=== PATIENT | male | born 1945 | race Caucasian/White ===

== ENCOUNTER 2016-08-03 12:28 | Outpatient (CLI) | payer OTHER | END 2016-08-03 12:29 | disposition home or self-care (01) | DX: R74.8 Abnormal levels of other serum enzymes (principal); N28.9 Disorder of kidney and ureter, unspecified; I10 Essential (primary) hypertension; E78.5 Hyperlipidemia, unspecified; E74.39 Other disorders of intestinal carbohydrate absorption; E29.1 Testicular hypofunction ==

== ENCOUNTER 2016-08-20 11:38 | Outpatient (CLI) | payer OTHER | END 2016-08-20 11:39 | disposition home or self-care (01) | DX: R07.89 Other chest pain (principal); I49.3 Ventricular premature depolarization; I10 Essential (primary) hypertension; E78.5 Hyperlipidemia, unspecified | CPT/HCPCS: 78452; 93017; A9500 ==

== ENCOUNTER 2016-08-26 08:27 | Outpatient (CLI) | payer OTHER | END 2016-08-26 08:28 | disposition home or self-care (01) | DX: Z79.899 Other long term (current) drug therapy (principal); I10 Essential (primary) hypertension; E78.2 Mixed hyperlipidemia ==

== ENCOUNTER 2016-09-22 07:48 | Outpatient (CLI) | payer OTHER | END 2016-09-22 07:49 | disposition home or self-care (01) | DX: R07.89 Other chest pain (principal); I10 Essential (primary) hypertension; N28.9 Disorder of kidney and ureter, unspecified ==

== ENCOUNTER 2016-10-19 13:20 | Outpatient (CLI) | payer OTHER | END 2016-10-19 23:59 | disposition home or self-care (01) | DX: L30.9 Dermatitis, unspecified (principal); N28.9 Disorder of kidney and ureter, unspecified; I10 Essential (primary) hypertension ==

== ENCOUNTER 2016-11-15 10:16 | Emergency (ER) | payer OTHER ==
[2016-11-15] MEDS ORDERED: LIDOCAINE 1% 2 ML VIAL ONE ×2 (12:32)
[2016-11-15] MEDS ORDERED: TETANUS/DIPHTHERIA/PERTUSSIS 0.5 ML SYRINGE IM ONE ×2 (12:53→13:00)
--- NOTE | 2016-11-15 12:54 | ED Physician Documentation ---
PD HPI UPPER EXT INJURY - Stated complaint Stated Complaint: LEFT FINGER LAC - Chief complaint Chief Complaint: Laceration - History obtained from History obtained from: Patient, Family - History of Present Illness Location: Left, Finger (middle) Type of injury: Laceration (with a skill saw) Where injury occurred: Home Timing - onset: Today Timing - duration: Hours Timing - details: Abrupt onset, Still present Improved by: Rest, Immobilization Worsened by: Moving, Palpating Associated symptoms: No: Weakness, Numbness, Tingling Contributing factors: No: Anticoagulated Similar symptoms before: Diagnosis (laceration) Recently seen: Not recently seen - Additonal information Additional information: using a skill saw with confidence he struck the tip of his left middle finger lacerating the tip and scoring the nail Review of Systems Constitutional: denies: Fever Nose: denies: Congestion Respiratory: denies: Cough GI: denies: Vomiting Skin: reports: Laceration (s) Musculoskeletal: reports: Extremity pain Neurologic: denies: Focal weakness, Numbness PD PAST MEDICAL HISTORY - Past Medical History Past Medical History: Yes Cardiovascular: Hypertension, High cholesterol Respiratory: Sleep apnea Endocrine/Autoimmune: None GI: GERD, Diverticulitis : None HEENT: Chronic hearing loss Psych: Depression, Anxiety Musculoskeletal: Other Derm: None - Past Surgical History Past Surgical History: Yes General: Appendectomy HEENT: Tonsil/Adenoidectomy - Present Medications Home Medications: Ambulatory Orders Medication Instructions Recorded Confirmed Aspirin [Aspir-Low] 81 mg PO DAILY 01/01/16 11/15/16 Felodipine [Felodipine ER] 10 mg PO DAILY 01/01/16 11/15/16 Omeprazole [PriLOSEC] 20 mg PO DAILY 01/01/16 11/15/16 Testosterone Cypionate 100 mg IM ONCE 01/01/16 11/15/16 [Depo-Testosterone] Blood Pressure Med Starts With C 11/15/16 - Allergies Allergies/Adverse Reactions: Allergies Allergy/AdvReac Type Severity Reaction Status Date / Time No Known Drug Allergies Allergy Verified 01/01/16 14:51 - Social History Does the pt smoke?: No Smoking Status: Never smoker - Immunizations Immunizations are current?: No Immunizations: TDAP >10years/unknown PD ED PE NORMAL - Vitals Vital signs reviewed: Yes (hypertensive ) - General General: No acute distress, Well developed/nourished - HEENT HEENT: Atraumatic, PERRL - Respiratory Respiratory: No respiratory distress - Derm Derm: Normal color, Warm and dry, No rash - Extremities Extremities: No deformity, No edema, Other (There is a 1.5mc laceration with macerated tissue and a score to the nail without laceration of the nailbed. ) - Neuro Neuro: No motor deficit, No sensory deficit - Psych Psych: Normal mood, Normal affect Results - Vitals Vitals: Vital Signs - 24 hr 11/15/16 10:21 Temperature 36 C L Heart Rate 84 Respiratory 18 Rate Blood Pressure 149/84 H O2 Saturation 96 Oxygen O2 Source Room air Procedures - Laceration (location) left middle finger Length in cm: 1.5 Wound type: Linear, Clean Neurovascular status: Sensory intact, Motor intact, Vascular intact Anesthesia: Lidocaine 1% Wound Preparation: Hibiclens, Irrigated copiously NS, Wound explored, To the base Skin layer closure: Nylon, Interrupted, Size #-0 - enter number (5-0), Sutures - enter # (2) Other: Patient tolerated well, No complications, Neurovascular intact, Dressing applied, Tetanus booster given Complexity: Simple PD MEDICAL DECISION MAKING - ED course Complexity details: considered differential, d/w patient ED course: 71 y/o male with a laceration to the tip of the middle finger on the left . Departure - Departure Disposition: 01 Home, Self Care Clinical Impression: Finger laceration Qualifiers: Encounter type: initial encounter Qualified Code(s): S61.219A - Laceration without foreign body of unspecified finger without damage to nail, initial encounter Condition: Stable Instructions: ED Laceration Hand Follow-Up: Bridger Sanches MD [Primary Care Provider] - Comments: sutures out in 7-10 days
[2016-11-15 13:20] VITALS: BP 158/86
== END 2016-11-15 13:19 | disposition home or self-care (01) ==
LOC: ED 10:16
DX: S61.312A Laceration without foreign body of right middle finger with damage to nail, initial encounter (principal); W29.8XXA Contact with other powered hand tools and household machinery, initial encounter; Y92.009 Unspecified place in unspecified non-institutional (private) residence as the place of occurrence of the external cause; I10 Essential (primary) hypertension; Z79.82 Long term (current) use of aspirin
CPT/HCPCS: 12001; 90471; 99283

== ENCOUNTER 2017-02-26 08:53 | Outpatient (CLI) | payer OTHER ==
[2017-02-26 13:51] LABS: EOSINOPHILS # (AUTO) 0.1 10^3/uL (0.0-0.7); EOSINOPHILS % (AUTO) 2.5 %; HGB - HEMOGLOBIN 17.4 g/dL (14.0-18.0); LYMPHOCYTES # (AUTO) 0.9 10^3/uL (1.5-3.5); LYMPHOCYTES % (AUTO) 18.4 %; MEAN CORPUSCULAR HEMOGLOBIN 32.1 pg (27.0-31.0); MEAN CORPUSCULAR HGB CONC 33.6 g/dL (32.0-36.0); MEAN CORPUSCULAR VOLUME 95.6 fL (80.0-94.0); MEAN PLATELET VOLUME 7.8 fL (7.4-11.4); MONOCYTES # (AUTO) 0.5 10^3/uL (0.0-1.0); MONOCYTES % (AUTO) 11.3 %; NEUTROPHILS # (AUTO) 3.1 10^3/uL (1.5-6.6); NEUTROPHILS % (AUTO) 66.8 %; NUCLEATED RED BLOOD CELLS AUTO 0.1 /100WBC; RED BLOOD COUNT 5.44 10^6/uL (4.70-6.10); RED CELL DISTRIBUTION WIDTH 14.2 % (12.0-15.0); UNCORRECTED WHITE BLOOD COUNT 4.6 x10^3/uL; WHITE BLOOD COUNT 4.6 x10^3/uL (4.8-10.8)
[2017-02-26 14:10] LABS: ALBUMIN/GLOBULIN RATIO 1.1 (1.0-2.2); BILIRUBIN,TOTAL 0.8 mg/dL (0.2-1.0); CALCIUM 9.4 mg/dL (8.5-10.3); CREATININE 1.7 mg/dL (0.6-1.2)
[2017-02-26 14:30] LABS: HEMOGLOBIN A1C 0.71 g/dL
== END 2017-02-26 08:54 | disposition home or self-care (01) ==
LOC: LAB.WCP 08:53
PROVIDERS: ATTEND Family Medicine
DX: D75.1 Secondary polycythemia (principal); F52.21 Male erectile disorder; R74.8 Abnormal levels of other serum enzymes; N28.9 Disorder of kidney and ureter, unspecified; E74.39 Other disorders of intestinal carbohydrate absorption
CPT/HCPCS: 36415; 80053; 83036; 84403; 85025

== ENCOUNTER 2017-05-27 12:45 | Outpatient (CLI) | payer OTHER ==
[2017-05-27 12:36] LABS: BASOPHILS % (AUTO) 0.5 %; EOSINOPHILS # (AUTO) 0.2 10^3/uL (0.0-0.7); EOSINOPHILS % (AUTO) 3.7 %; HCT - HEMATOCRIT 52.5 % (42.0-52.0); HGB - HEMOGLOBIN 17.9 g/dL (14.0-18.0); LYMPHOCYTES # (AUTO) 1.1 10^3/uL (1.5-3.5); LYMPHOCYTES % (AUTO) 15.7 %; MEAN CORPUSCULAR HGB CONC 34.2 g/dL (32.0-36.0); MEAN CORPUSCULAR VOLUME 96.5 fL (80.0-94.0); MEAN PLATELET VOLUME 7.7 fL (7.4-11.4); MONOCYTES # (AUTO) 0.8 10^3/uL (0.0-1.0); NEUTROPHILS # (AUTO) 4.6 10^3/uL (1.5-6.6); NEUTROPHILS % (AUTO) 68.1 %; NUCLEATED RED BLOOD CELLS AUTO 0.1 /100WBC; RED BLOOD COUNT 5.44 10^6/uL (4.70-6.10); RED CELL DISTRIBUTION WIDTH 13.7 % (12.0-15.0); UNCORRECTED WHITE BLOOD COUNT 6.8 x10^3/uL; WHITE BLOOD COUNT 6.8 x10^3/uL (4.8-10.8)
[2017-05-27 12:54] LABS: HEMOGLOBIN A1C 0.73 g/dL
[2017-05-27 13:04] LABS: ALBUMIN/GLOBULIN RATIO 1.1 (1.0-2.2); BILIRUBIN,TOTAL 0.8 mg/dL (0.2-1.0); BUN - BLOOD UREA NITROGEN 36 mg/dL (6-20); CALCIUM 9.3 mg/dL (8.5-10.3); CARBON DIOXIDE - CO2 28 mmol/L (21-32); CHLORIDE 102 mmol/L (101-111); CHOL/HDL RATIO 5.8 (<5.0); CHOLESTEROL 190 mg/dL; CREATININE 1.8 mg/dL (0.6-1.2); GFR - MDRD 37 (>89); GLUCOSE 99 mg/dL (70-100); HDL CHOLESTEROL 33 mg/dL; LDL/HDL RATIO 3.5 (<3.6); POTASSIUM 4.6 mmol/L (3.5-5.0); SODIUM 135 mmol/L (135-145); TOTAL PROTEIN 8.2 g/dL (6.7-8.2); TRIGLYCERIDES 217 mg/dL; VLDL CHOLESTEROL 43 mg/dL
== END 2017-05-27 12:46 | disposition home or self-care (01) ==
LOC: LAB.WCP 12:45
PROVIDERS: ATTEND Family Medicine
DX: N28.9 Disorder of kidney and ureter, unspecified (principal); I10 Essential (primary) hypertension; D75.1 Secondary polycythemia; R74.8 Abnormal levels of other serum enzymes; E74.39 Other disorders of intestinal carbohydrate absorption; Z12.5 Encounter for screening for malignant neoplasm of prostate
CPT/HCPCS: 36415; 80053; 80061; 83036; 84153; 85025

== ENCOUNTER 2017-05-31 09:18 | Outpatient (CLI) | payer OTHER | END 2017-05-31 09:19 | disposition home or self-care (01) | LOC: LAB.WCP 09:18 | PROVIDERS: ATTEND Family Medicine | DX: D75.1 Secondary polycythemia (principal) | CPT/HCPCS: 36415; 82728 ==

== ENCOUNTER 2017-06-25 10:50 | Outpatient (CLI) | payer OTHER ==
[2017-06-25 19:14] LABS: BASOPHILS % (AUTO) 0.8 %; EOSINOPHILS # (AUTO) 0.2 10^3/uL (0.0-0.7); EOSINOPHILS % (AUTO) 3.8 %; LYMPHOCYTES # (AUTO) 0.8 10^3/uL (1.5-3.5); LYMPHOCYTES % (AUTO) 14.5 %; MEAN CORPUSCULAR HEMOGLOBIN 32.2 pg (27.0-31.0); MEAN CORPUSCULAR VOLUME 97.4 fL (80.0-94.0); MEAN PLATELET VOLUME 7.6 fL (7.4-11.4); MONOCYTES # (AUTO) 0.6 10^3/uL (0.0-1.0); MONOCYTES % (AUTO) 10.9 %; NEUTROPHILS # (AUTO) 3.9 10^3/uL (1.5-6.6); PLT - PLATELET COUNT 286 10^3/uL (130-450); RED BLOOD COUNT 5.28 10^6/uL (4.70-6.10); RED CELL DISTRIBUTION WIDTH 13.4 % (12.0-15.0); WHITE BLOOD COUNT 5.6 x10^3/uL (4.8-10.8)
[2017-06-25 20:01] LABS: ALBUMIN 4.2 g/dL (3.2-5.5); ALBUMIN/GLOBULIN RATIO 1.1 (1.0-2.2); BILIRUBIN,TOTAL 0.7 mg/dL (0.2-1.0); CALCIUM 9.4 mg/dL (8.5-10.3); CREATININE 1.8 mg/dL (0.6-1.2); TOTAL PROTEIN 7.9 g/dL (6.7-8.2)
[2017-06-25 20:06] LABS: FOLATE 21.77 ng/mL (5.90 - >24.8)
== END 2017-06-25 10:51 | disposition home or self-care (01) ==
LOC: LAB.WCP 10:50
PROVIDERS: ATTEND Family Medicine
DX: D75.1 Secondary polycythemia (principal); R07.89 Other chest pain
CPT/HCPCS: 36415; 80053; 82607; 82746; 83540; 84466; 84484; 85025

== ENCOUNTER 2017-08-04 14:12 | Outpatient (CLI) | payer OTHER ==
[2017-08-04 14:37] LABS: CREATININE,URINE 164.4 mg/dL; PROTEIN/CREATININE RATIO,URINE 0.1 (<=0.2)
== END 2017-08-04 14:13 | disposition home or self-care (01) ==
LOC: LAB 14:12
PROVIDERS: ATTEND Internal Medicine Nephrology
DX: R80.9 Proteinuria, unspecified (principal)
CPT/HCPCS: 82570; 84156

== ENCOUNTER 2017-08-23 10:18 | Outpatient (CLI) | payer OTHER | END 2017-08-23 10:19 | disposition home or self-care (01) | LOC: SC 10:18 | PROVIDERS: ATTEND Internal Medicine Pulmonary Disease | DX: G47.33 Obstructive sleep apnea (adult) (pediatric) (principal) | CPT/HCPCS: 99203; 99212 ==

== ENCOUNTER 2017-09-03 16:46 | Outpatient (CLI) | payer OTHER ==
--- NOTE | 2017-09-04 19:54 | Ultrasound Report ---
EXAM: RENAL ULTRASOUND EXAM DATE: 09/03/2017 05:45 PM. CLINICAL HISTORY: Stage 3 kidney disease. COMPARISON: 08/06/2017 ultrasound, CT 10/17/2015 images only. TECHNIQUE: Real-time scanning was performed with static images obtained. FINDINGS: Right Kidney: 11.0 x 5 x 5.3 cm. Normal echotexture with no stones, contour-deforming masses, or hydr onephrosis. Left Kidney: 12.4 x 5.6 x 5.9 cm. The kidney is normal in size and echogenicity. No stones or hydron ephrosis. A superior simple cyst measures 2.1 x 1.6 x 1.8 cm. Bladder: Bilateral jets seen. The prevoid bladder volume was 133 cc. The postvoid bladder volume was 10 cc. Other: None. IMPRESSION: Normal renal ultrasound. [facility] Referring Provider Line: [phone] SITE ID: [id number]
== END 2017-09-03 16:47 | disposition home or self-care (01) ==
LOC: DI 16:46
PROVIDERS: ATTEND Internal Medicine Nephrology
DX: N18.3 Chronic kidney disease, stage 3 (moderate) (principal)
CPT/HCPCS: 76770

== ENCOUNTER 2017-09-06 08:32 | Outpatient (CLI) | payer OTHER ==
--- NOTE | 2017-09-06 10:55 | CT Report ---
CHEST CT WITHOUT CONTRAST: 09/06/2017 CLINICAL INDICATION: Pulmonary nodule. COMPARISON: 04/15/2017. TECHNIQUE: Axial CT images of the chest were obtained without intravenous contrast. FINDINGS: The heart and great vessels demonstrate atherosclerotic calcifications. The previously noted hilar and mediastinal adenopathy has increased slightly in size , with the previously measured precarinal node now measuring 1.7 cm short axis, and the previously measured AP window node measuring 1.2 cm (1.4 and 1.0 cm previously respectively ). Right hilar fullness is also increased, likely representing a right hilar adenopathy. Imaging of the lungs is somewhat limited by respiratory motion. Extensive fibrotic changes are again seen. A nodule in the right lower lobe measures 11 x 9 mm (previously 12 x 9 mm). No pleural effusion or pneumothorax is present. Osseous structures demonstrate degenerative changes. Limited evaluation of upper abdominal structures demonstrates normal adrenal glands. IMPRESSION: INCREASING SIZE OF ADENOPATHY. CONSIDER EITHER PET SCAN OR BIOPSY FOR FURTHER EVALUATION. STABLE RIGHT LOWER LOBE PULMONARY NODULE. In accordance with CT protocol optimization, one or more of the following dose reduction techniques were utilized for this exam: automated exposure control, adjustment of mA and/or KV based on patient size, or use of iterative reconstructive technique. TD: 09/06/2017 10:55 MTDD
== END 2017-09-06 08:33 | disposition home or self-care (01) ==
LOC: DI 08:32
PROVIDERS: ATTEND Family Medicine
DX: R91.1 Solitary pulmonary nodule (principal); R59.0 Localized enlarged lymph nodes
CPT/HCPCS: 71250

== ENCOUNTER 2017-10-26 08:32 | Outpatient (CLI) | payer OTHER ==
[2017-10-26 12:59] LABS: CALCIUM 9.3 mg/dL (8.5-10.3); CREATININE 1.7 mg/dL (0.6-1.2)
== END 2017-10-26 08:33 | disposition home or self-care (01) ==
LOC: LAB.WCP 08:32
PROVIDERS: ATTEND Internal Medicine Nephrology
DX: N05.9 Unspecified nephritic syndrome with unspecified morphologic changes (principal)
CPT/HCPCS: 36415; 80048

== ENCOUNTER 2017-11-03 09:01 | Outpatient (CLI) | payer OTHER ==
[2017-11-03 13:06] LABS: ALBUMIN 4.1 g/dL (3.2-5.5); BILIRUBIN,TOTAL 0.7 mg/dL (0.2-1.0); CALCIUM 9.2 mg/dL (8.5-10.3); CREATININE 1.4 mg/dL (0.6-1.2); MAGNESIUM 1.9 mg/dL (1.7-2.8); TOTAL PROTEIN 8.1 g/dL (6.7-8.2)
== END 2017-11-03 09:02 | disposition home or self-care (01) ==
LOC: LAB.WCP 09:01
PROVIDERS: ATTEND Specialist
DX: I10 Essential (primary) hypertension (principal); E78.2 Mixed hyperlipidemia
CPT/HCPCS: 36415; 80053; 81599; 82465; 83704; 83718; 83735; 84478

== ENCOUNTER 2017-12-28 12:00 | Outpatient (CLI) | payer OTHER ==
[2017-12-28 12:37] LABS: CALCIUM 8.9 mg/dL (8.5-10.3); CREATININE 1.6 mg/dL (0.6-1.2)
== END 2017-12-28 12:01 | disposition home or self-care (01) ==
LOC: LAB 12:00
PROVIDERS: ATTEND Internal Medicine Nephrology
DX: N05.9 Unspecified nephritic syndrome with unspecified morphologic changes (principal)
CPT/HCPCS: 36415; 80048

== ENCOUNTER 2018-01-10 08:54 | Outpatient (CLI) | payer OTHER ==
[2018-01-10 13:04] LABS: BASOPHILS % (AUTO) 0.1 %; EOSINOPHILS # (AUTO) 0.1 10^3/uL (0.0-0.7); EOSINOPHILS % (AUTO) 0.8 %; HGB - HEMOGLOBIN 11.1 g/dL (14.0-18.0); LYMPHOCYTES # (AUTO) 1.2 10^3/uL (1.5-3.5); LYMPHOCYTES % (AUTO) 17.3 %; MEAN CORPUSCULAR HEMOGLOBIN 29.8 pg (27.0-31.0); MEAN CORPUSCULAR HGB CONC 33.4 g/dL (32.0-36.0); MEAN CORPUSCULAR VOLUME 89.1 fL (80.0-94.0); MEAN PLATELET VOLUME 6.9 fL (7.4-11.4); MONOCYTES # (AUTO) 0.6 10^3/uL (0.0-1.0); MONOCYTES % (AUTO) 9.2 %; NEUTROPHILS % (AUTO) 72.6 %; PLT - PLATELET COUNT 262 10^3/uL (130-450); RED BLOOD COUNT 3.74 10^6/uL (4.70-6.10); WHITE BLOOD COUNT 6.9 x10^3/uL (4.8-10.8)
[2018-01-10 13:28] LABS: PSA SCREEN (Z12.5) 0.96 ng/mL (0.000-2.000)
[2018-01-10 13:34] LABS: ALBUMIN 3.7 g/dL (3.2-5.5); ALBUMIN/GLOBULIN RATIO 1.2 (1.0-2.2); ALKALINE PHOSPHATASE 42 IU/L (42-121); ALT ALANINE AMINOTRANSFERASE 36 IU/L (10-60); AST ASPARTATE AMINOTRANSFERASE 38 IU/L (10-42); BILIRUBIN,TOTAL 0.9 mg/dL (0.2-1.0); BUN - BLOOD UREA NITROGEN 27 mg/dL (6-20); CALCIUM 8.7 mg/dL (8.5-10.3); CARBON DIOXIDE - CO2 27 mmol/L (21-32); CHLORIDE 98 mmol/L (101-111); CHOL/HDL RATIO 3.5 (<5.0); CHOLESTEROL 179 mg/dL; CREATININE 1.4 mg/dL (0.6-1.2); GFR - MDRD 50 (>89); GLUCOSE 94 mg/dL (70-100); HDL CHOLESTEROL 51 mg/dL; LDL CHOLESTEROL,CALCULATED 97 mg/dL; LDL/HDL RATIO 1.9 (<3.6); SODIUM 135 mmol/L (135-145); TOTAL PROTEIN 6.7 g/dL (6.7-8.2); VLDL CHOLESTEROL 31 mg/dL
[2018-01-10 14:19] LABS: PLATELET ESTIMATE, MANUAL NORMAL (130-450,000) (NORMAL); PLATELET MORPHOLOGY NORMAL APPEARANCE (NORMAL)
== END 2018-01-10 08:55 | disposition home or self-care (01) ==
LOC: LAB.WCP 08:54
PROVIDERS: ATTEND Family Medicine
DX: I10 Essential (primary) hypertension (principal); E78.5 Hyperlipidemia, unspecified; Z12.5 Encounter for screening for malignant neoplasm of prostate; F52.21 Male erectile disorder; E29.1 Testicular hypofunction
CPT/HCPCS: 36415; 80053; 80061; 83721; 84153; 84403; 84443; 85025

== ENCOUNTER 2018-01-20 08:00 | Outpatient (CLI) | payer OTHER ==
[2018-01-20 13:55] LABS: HB2 TOTAL 12.9 g/dL; HEMOGLOBIN A1C 0.62 g/dL; HEMOGLOBIN A1C % 6.5 % (4.6-6.2)
== END 2018-01-20 08:01 | disposition home or self-care (01) ==
LOC: LAB.WCP 08:00
PROVIDERS: ATTEND Family Medicine
DX: E11.9 Type 2 diabetes mellitus without complications (principal)
CPT/HCPCS: 36415; 83036

== ENCOUNTER 2018-02-10 13:40 | Outpatient (CLI) | payer OTHER ==
[2018-02-10 19:11] LABS: BASOPHILS % (AUTO) 0.1 %; HGB - HEMOGLOBIN 12.8 g/dL (14.0-18.0); LYMPHOCYTES # (AUTO) 0.4 10^3/uL (1.5-3.5); LYMPHOCYTES % (AUTO) 5.4 %; MEAN CORPUSCULAR HEMOGLOBIN 29.3 pg (27.0-31.0); MEAN CORPUSCULAR VOLUME 88.8 fL (80.0-94.0); MEAN PLATELET VOLUME 7.2 fL (7.4-11.4); MONOCYTES # (AUTO) 0.2 10^3/uL (0.0-1.0); MONOCYTES % (AUTO) 2.8 %; NEUTROPHILS # (AUTO) 7.4 10^3/uL (1.5-6.6); NEUTROPHILS % (AUTO) 91.7 %; PLT - PLATELET COUNT 393 10^3/uL (130-450); RED BLOOD COUNT 4.39 10^6/uL (4.70-6.10); RED CELL DISTRIBUTION WIDTH 19.7 % (12.0-15.0); WHITE BLOOD COUNT 8.1 x10^3/uL (4.8-10.8)
[2018-02-10 19:29] LABS: ALBUMIN 3.6 g/dL (3.2-5.5); ALBUMIN/GLOBULIN RATIO 1.1 (1.0-2.2); BILIRUBIN,TOTAL 0.9 mg/dL (0.2-1.0); CALCIUM 9.1 mg/dL (8.5-10.3); CREATININE 1.5 mg/dL (0.6-1.2)
[2018-02-10 19:32] LABS: FERRITIN 51.1 ng/mL (23.9-336.2)
== END 2018-02-10 13:41 | disposition home or self-care (01) ==
LOC: LAB.WCP 13:40
PROVIDERS: ATTEND Family Medicine
DX: D64.9 Anemia, unspecified (principal); E11.9 Type 2 diabetes mellitus without complications; R74.8 Abnormal levels of other serum enzymes; N28.9 Disorder of kidney and ureter, unspecified; E78.5 Hyperlipidemia, unspecified; I10 Essential (primary) hypertension; E29.1 Testicular hypofunction
CPT/HCPCS: 36415; 80053; 82607; 82728; 83540; 84403; 84466; 85025

== ENCOUNTER 2018-05-01 13:37 | Emergency (ER) | payer OTHER ==
--- NOTE | 2018-05-01 15:14 | ED Physician Documentation ---
PD HPI SKIN - Stated complaint Stated Complaint: NECK RASH - Chief complaint Chief Complaint: Neuro - History obtained from History obtained from: Patient - History of Present Illness Timing - onset: How many weeks ago (4) Timing - duration: Weeks (4) Timing - details: Gradual onset, Still present (he had onset right neck and scalp pain 4 weeks ago and saw PMD after several days or more of it. Had rash developing. Dx with shingles and Rx gabapentin. He was onsteroids for autoimmune process already. Pt says no antiviral since had already been almost a week of symptoms and PMD felt would not have impact, per patient. He says the rash is mostly crusted over now, but still some open sores. Has pain still. The past several days he has had episodes of worse pain, associated with burning. He has also noted vertigo with position changes. The vertigo will improved once sitting up or not moving for a minute. He feels okay without vertigo once up/walking. No visual changes. No focal weaknesses. No trouble speaking. says maybe some slight confusion at times, but attributed it to the Percocet pain meds and was before the dizzy episodes.) Location: Scalp (has shingles rash right posterior neck to scalp and up to forehead on right.) Quality / character: Itchy, Painful, Vesicular (mostly dried at this point) Review of Systems Constitutional: reports: Fatigue. denies: Fever, Chills Eyes: denies: Loss of vision, Decreased vision, Photophobia Ears: reports: Tinnitus/ringing (mild at times the past few days). denies: Loss of hearing Nose: denies: Rhinorrhea / runny nose, Congestion Throat: denies: Sore throat Respiratory: denies: Cough Skin: reports: Rash, Lesions Neurologic: denies: Generalized weakness, Focal weakness, Numbness, Near syncope PD PAST MEDICAL HISTORY - Past Medical History Past Medical History: Yes Cardiovascular: Hypertension, High cholesterol Respiratory: Sleep apnea, Other Endocrine/Autoimmune: None GI: GERD, Diverticulitis : None HEENT: Chronic hearing loss Psych: Depression, Anxiety Musculoskeletal: Other Derm: Psoriasis Other Past Medical History: pulmonary fibrosis - Past Surgical History Past Surgical History: Yes General: Appendectomy HEENT: Tonsil/Adenoidectomy - Present Medications Home Medications: Ambulatory Orders Medication Instructions Recorded Confirmed Aspirin [Aspir-Low] 81 mg PO DAILY 07/13/16 09/12/18 Felodipine [Felodipine ER] 10 mg PO DAILY 01/01/16 03/02/18 Omeprazole [PriLOSEC] 20 mg PO DAILY 01/01/16 03/02/18 Atorvastatin [Lipitor] 40 mg PO DAILY 07/07/17 03/02/18 Chlorthalidone 1 tab PO DAILY 07/07/17 03/02/18 PARoxetine [Paxil] 10 mg PO DAILY 07/07/17 03/02/18 Lisinopril 1 tab PO DAILY 07/21/17 03/02/18 Acyclovir 400 mg PO 5XD #25 tablet 05/01/18 Gabapentin 05/01/18 05/01/18 Meclizine [Antivert] 25 mg PO Q6H PRN #30 tablet 05/01/18 - Allergies Allergies/Adverse Reactions: Allergies Allergy/AdvReac Type Severity Reaction Status Date / Time No Known Drug Allergies Allergy Verified 05/01/18 13:46 - Social History Does the pt smoke?: No Smoking Status: Never smoker - Immunizations Immunizations are current?: No Immunizations: TDAP >10years/unknown PD ED PE NORMAL - Vitals Vital signs reviewed: Yes - General General: Alert and oriented X 3, No acute distress, Well developed/nourished - HEENT HEENT: PERRL, EOMI (no nystagmus at this time, but not feeling dizzy currently. ), Ears normal, Moist mucous membranes, Pharynx benign - Neck Neck: Supple, no meningeal sign, No adenopathy, No JVD, No bruit - Cardiac Cardiac: RRR, No murmur - Respiratory Respiratory: Clear bilaterally - Derm Derm: Normal color, Warm and dry, Other (right upper neck and posterior scalp with healing sores/vesicle bases, without exudate. No signs of secondary infecti on. Tender on skin generally in that area. Sores not fully crusted. Ear canal appears okay. 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 Could be some inflammation around the inner ear from the singles. However consider side effect of the gabapentin (Epocrates lists as common side effect), and he says he did not feel improvement with it anyway (trying to get insurance approval for Lyrica). I would consider Elavil as alternative. He is already on steroids otherwise. Had not had antiviral course, so consider that with still some open vesicles. Discussed with him and told would be small benefit at this time, but could still help. ), d/w patient Departure - Departure Disposition: 01 Home, Self Care Clinical Impression: Positional vertigo Shingles rash Qualifiers: Herpes zoster complications: without complications Qualified Code(s): B02.9 - Zoster without complications Condition: Stable Record reviewed to determine appropriate education?: Yes Instructions: ED Vertigo Unspecified Follow-Up: Angeline Connors, [Primary Care Provider] - Prescriptions: Acyclovir 400 mg PO 5XD #25 tablet Meclizine [Antivert] 25 mg PO Q6H PRN #30 tablet PRN Reason: Vertigo Comments: Your vertigo episodes could actually be a side effect of the gabapentin you are on or may be related to the inflammation around the ear from the shingles. You are already on prednisone so continue that. Add meclizine every 6-8 hours if needed for dizziness. You could continue the gabapentin or even discontinue it for now since it does not feel like it is helping you that much. Even though your shingles is a bit more established, we can still try a course of the antiviral medication and see if that will improve the symptoms of it as well. Discharge Date/Time: 05/01/18 15:58
[2018-05-01] MEDS ORDERED: MECLIZINE 12.5 MG TABLET PO STA (15:34)
[2018-05-01 15:52] VITALS: BP 114/75
== END 2018-05-01 15:58 | disposition home or self-care (01) ==
LOC: ED 13:37
DX: R42 Dizziness and giddiness (principal); B02.9 Zoster without complications
CPT/HCPCS: 93005; 99283; A9270

== ENCOUNTER 2018-06-05 09:00 | Emergency (ER) | payer OTHER ==
[2018-06-05 09:11] VITALS: BP 150/87
[2018-06-05] MEDS ORDERED: oxyCODONE 5 MG TABLET PO STA (10:00)
--- NOTE | 2018-06-05 10:03 | ED Physician Documentation ---
History of Present Illness - Stated complaint Stated Complaint: RASH ALL OVER - Chief complaint Chief Complaint: Wound - History obtained from History obtained from: Patient, Family - History of Present Illness Timing: How many weeks ago (9) - Additonal information Additional information: 72-year-old male has had an issue with shingles beginning about 9 weeks ago. He with a course of antivirals and had subsequent pain with postherpetic neuralgia and he has been taking some Percocet. He is now out of his Percocet and he has now developed a similar rash on the other side of his head. He is on prednisone chronically for pulmonary fibrosis. Review of Systems Constitutional: reports: Fatigue. denies: Fever Eyes: denies: Decreased vision Ears: denies: Ear pain Nose: denies: Rhinorrhea / runny nose, Congestion Throat: denies: Sore throat Cardiac: denies: Chest pain / pressure Respiratory: reports: Dyspnea, Cough : denies: Dysuria, Frequency Skin: reports: Rash Musculoskeletal: reports: Neck pain PD PAST MEDICAL HISTORY - Past Medical History Past Medical History: Yes Cardiovascular: Hypertension, High cholesterol Respiratory: Sleep apnea, Other Endocrine/Autoimmune: None GI: GERD, Diverticulitis : None HEENT: Chronic hearing loss Psych: Depression, Anxiety Musculoskeletal: Other Derm: Psoriasis Other Past Medical History: inflammation/scars of lungs with fibrosis on Cellcept, no organ transplant - Past Surgical History Past Surgical History: Yes General: Appendectomy Cardiovascular: Other HEENT: Tonsil/Adenoidectomy - Present Medications Home Medications: Ambulatory Orders Medication Instructions Recorded Confirmed Aspirin [Aspir-Low] 81 mg PO DAILY 01/01/16 06/01/18 Felodipine [Felodipine ER] 10 mg PO DAILY 01/01/16 06/01/18 Omeprazole [PriLOSEC] 20 mg PO DAILY 01/01/16 06/01/18 Atorvastatin [Lipitor] 40 mg PO DAILY 07/07/17 06/01/18 RX: Chlorthalidone 1 tab PO DAILY 07/07/17 06/01/18 RX: PARoxetine [Paxil] 10 mg PO DAILY 07/07/17 06/01/18 RX: Lisinopril 1 tab PO DAILY 07/21/17 06/01/18 Gabapentin 1 tab ORAL TID 05/01/18 06/01/18 RX: Meclizine [Antivert] 25 mg PO Q6H PRN #30 tablet 05/01/18 06/01/18 RX: predniSONE [Prednisone] 2 tab PO DAILY 06/01/18 06/01/18 Mycophenolate Mofetil [Cellcept] 500 mg PO BID 06/05/18 06/05/18 Oxycodone HCl/Acetaminophen 1 - 2 each PO Q6H PRN #14 tablet 06/05/18 [Percocet 5-325 mg Tablet] Valacyclovir HCl [Valacyclovir] 1,000 mg PO TID #21 tablet 06/05/18 oxyCODONE [Roxicodone] 5 mg PO Q4-6H 06/05/18 06/05/18 - Allergies Allergies/Adverse Reactions: Allergies Allergy/AdvReac Type Severity Reaction Status Date / Time No Known Drug Allergies Allergy Verified 06/05/18 09:11 - Social History Does the pt smoke?: No Smoking Status: Never smoker - Immunizations Immunizations are current?: No Immunizations: TDAP >10years/unknown PD ED PE NORMAL - Vitals Vital signs reviewed: Yes (hypertensive ) - General General: Alert and oriented X 3, Well developed/nourished, Other (The patient appears to be in pain and is distrated by the pain. ) - HEENT HEENT: Atraumatic, PERRL, EOMI, Other (There are multiple erythematous vesicles over the left occipital scalp consistent with zoster. 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 He is started back on Alondra acyclovir and I have refilled his Percocet. He is seeking pain managment Departure - Departure Disposition: 01 Home, Self Care Clinical Impression: Post herpetic neuralgia Condition: Stable Instructions: ED Chronic Pain Management, ED Shingles Follow-Up: Angeline Connors DO [Primary Care Provider] - Prescriptions: Oxycodone HCl/Acetaminophen [Percocet 5-325 mg Tablet] 1 - 2 each PO Q6H PRN #14 tablet PRN Reason: pain Valacyclovir HCl [Valacyclovir] 1,000 mg PO TID #21 tablet Discharge Date/Time: 06/05/18 10:19
== END 2018-06-05 10:19 | disposition home or self-care (01) ==
LOC: ED 09:00
DX: B02.8 Zoster with other complications (principal); B02.29 Other postherpetic nervous system involvement; J84.10 Pulmonary fibrosis, unspecified; Z79.52 Long term (current) use of systemic steroids; I10 Essential (primary) hypertension; Z79.82 Long term (current) use of aspirin
CPT/HCPCS: 99283; A9270

== ENCOUNTER 2018-06-15 10:43 | Outpatient (CLI) | payer OTHER ==
[2018-06-15 11:42] LABS: ALBUMIN 3.9 g/dL (3.2-5.5); ALKALINE PHOSPHATASE 51 IU/L (42-121); ALT ALANINE AMINOTRANSFERASE 50 IU/L (10-60); AST ASPARTATE AMINOTRANSFERASE 36 IU/L (10-42); BILIRUBIN,TOTAL 0.3 mg/dL (0.2-1.0); TOTAL PROTEIN 6.6 g/dL (6.7-8.2)
[2018-06-15 11:46] LABS: BILIRUBIN,DIRECT < 0.1 mg/dL (0.1-0.5)
== END 2018-06-15 10:44 | disposition home or self-care (01) ==
LOC: LAB 10:43
PROVIDERS: ATTEND Internal Medicine Critical Care Medicine
DX: J67.9 Hypersensitivity pneumonitis due to unspecified organic dust (principal); Z79.899 Other long term (current) drug therapy
CPT/HCPCS: 36415; 80076

== ENCOUNTER 2018-07-21 08:00 | Outpatient (CLI) | payer OTHER ==
[2018-07-21 13:09] LABS: ALBUMIN 3.8 g/dL (3.2-5.5); BILIRUBIN,DIRECT 0.1 mg/dL (0.1-0.5); BILIRUBIN,TOTAL 0.8 mg/dL (0.2-1.0); TOTAL PROTEIN 6.8 g/dL (6.7-8.2)
== END 2018-07-21 23:59 | disposition home or self-care (01) ==
LOC: LAB.WCP 08:00
PROVIDERS: ATTEND Internal Medicine Critical Care Medicine
DX: Z79.899 Other long term (current) drug therapy (principal); J67.9 Hypersensitivity pneumonitis due to unspecified organic dust
CPT/HCPCS: 36415; 80076

== ENCOUNTER 2018-08-18 08:46 | Outpatient (CLI) | payer OTHER ==
[2018-08-18 09:39] LABS: BILIRUBIN,DIRECT 0.1 mg/dL (0.1-0.5); BILIRUBIN,TOTAL 0.7 mg/dL (0.2-1.0); TOTAL PROTEIN 6.8 g/dL (6.7-8.2)
== END 2018-08-18 08:47 | disposition home or self-care (01) ==
LOC: LAB 08:46
PROVIDERS: ATTEND Internal Medicine Critical Care Medicine
DX: J67.9 Hypersensitivity pneumonitis due to unspecified organic dust (principal); Z79.899 Other long term (current) drug therapy
CPT/HCPCS: 36415; 80076

== ENCOUNTER 2018-09-16 08:00 | Outpatient (CLI) | payer OTHER ==
[2018-09-16 13:32] LABS: BASOPHILS % (AUTO) 0.3 %; EOSINOPHILS % (AUTO) 0.5 %; HGB - HEMOGLOBIN 13.4 g/dL (14.0-18.0); LYMPHOCYTES # (AUTO) 0.6 10^3/uL (1.5-3.5); LYMPHOCYTES % (AUTO) 6.8 %; MEAN CORPUSCULAR HEMOGLOBIN 32.2 pg (27.0-31.0); MEAN CORPUSCULAR HGB CONC 33.9 g/dL (32.0-36.0); MEAN CORPUSCULAR VOLUME 94.8 fL (80.0-94.0); MEAN PLATELET VOLUME 7.2 fL (7.4-11.4); MONOCYTES # (AUTO) 0.7 10^3/uL (0.0-1.0); MONOCYTES % (AUTO) 7.9 %; NEUTROPHILS # (AUTO) 7.8 10^3/uL (1.5-6.6); NEUTROPHILS % (AUTO) 84.5 %; PLT - PLATELET COUNT 270 10^3/uL (130-450); RED BLOOD COUNT 4.17 10^6/uL (4.70-6.10); RED CELL DISTRIBUTION WIDTH 14.8 % (12.0-15.0); WHITE BLOOD COUNT 9.2 x10^3/uL (4.8-10.8)
[2018-09-16 13:49] LABS: ALBUMIN 4.1 g/dL (3.2-5.5); ALBUMIN/GLOBULIN RATIO 1.5 (1.0-2.2); ALKALINE PHOSPHATASE 51 IU/L (42-121); ALT ALANINE AMINOTRANSFERASE 44 IU/L (10-60); AST ASPARTATE AMINOTRANSFERASE 33 IU/L (10-42); BILIRUBIN,TOTAL 0.9 mg/dL (0.2-1.0); BUN - BLOOD UREA NITROGEN 28 mg/dL (6-20); CALCIUM 9.4 mg/dL (8.5-10.3); CARBON DIOXIDE - CO2 31 mmol/L (21-32); CHLORIDE 96 mmol/L (101-111); CHOL/HDL RATIO 5.3 (<5.0); CHOLESTEROL 202 mg/dL; CREATININE 1.6 mg/dL (0.6-1.2); GFR - MDRD 43 (>89); GLUCOSE 118 mg/dL (70-100); HDL CHOLESTEROL 38 mg/dL; LDL CHOLESTEROL,CALCULATED 119 mg/dL; LDL/HDL RATIO 3.1 (<3.6); SODIUM 137 mmol/L (135-145); TOTAL PROTEIN 6.8 g/dL (6.7-8.2); VLDL CHOLESTEROL 45 mg/dL
[2018-09-16 14:10] LABS: HB2 TOTAL 14.5 g/dL; HEMOGLOBIN A1C 0.67 g/dL; HEMOGLOBIN A1C % 6.4 % (4.6-6.2)
== END 2018-09-16 23:59 | disposition home or self-care (01) ==
LOC: LAB.WCP 08:00
PROVIDERS: ATTEND Family Medicine
DX: E11.9 Type 2 diabetes mellitus without complications (principal); E29.1 Testicular hypofunction; D75.1 Secondary polycythemia; J67.9 Hypersensitivity pneumonitis due to unspecified organic dust; Z79.899 Other long term (current) drug therapy
CPT/HCPCS: 36415; 80053; 80061; 82248; 83036; 83721; 84403; 84443; 85025

== ENCOUNTER 2018-10-14 08:00 | Outpatient (CLI) | payer OTHER ==
[2018-10-14 13:50] LABS: BASOPHILS % (AUTO) 0.5 %; EOSINOPHILS # (AUTO) 0.1 10^3/uL (0.0-0.7); EOSINOPHILS % (AUTO) 2.8 %; HGB - HEMOGLOBIN 13.4 g/dL (14.0-18.0); LYMPHOCYTES # (AUTO) 0.9 10^3/uL (1.5-3.5); LYMPHOCYTES % (AUTO) 17.8 %; MEAN CORPUSCULAR HEMOGLOBIN 30.9 pg (27.0-31.0); MEAN CORPUSCULAR HGB CONC 32.3 g/dL (32.0-36.0); MEAN CORPUSCULAR VOLUME 95.8 fL (80.0-94.0); MEAN PLATELET VOLUME 7.5 fL (7.4-11.4); MONOCYTES # (AUTO) 0.6 10^3/uL (0.0-1.0); MONOCYTES % (AUTO) 11.1 %; NEUTROPHILS # (AUTO) 3.5 10^3/uL (1.5-6.6); NEUTROPHILS % (AUTO) 67.8 %; PLT - PLATELET COUNT 246 10^3/uL (130-450); RED BLOOD COUNT 4.32 10^6/uL (4.70-6.10); RED CELL DISTRIBUTION WIDTH 14.3 % (12.0-15.0); WHITE BLOOD COUNT 5.2 x10^3/uL (4.8-10.8)
[2018-10-14 14:12] LABS: ALBUMIN/GLOBULIN RATIO 1.4 (1.0-2.2); BILIRUBIN,TOTAL 0.8 mg/dL (0.2-1.0); CALCIUM 9.2 mg/dL (8.5-10.3); CREATININE 1.6 mg/dL (0.6-1.2); TOTAL PROTEIN 6.9 g/dL (6.7-8.2)
== END 2018-10-14 23:59 | disposition home or self-care (01) ==
LOC: LAB.WCP 08:00
PROVIDERS: ATTEND Nurse Practitioner
DX: E29.1 Testicular hypofunction (principal); D64.9 Anemia, unspecified; E11.9 Type 2 diabetes mellitus without complications
CPT/HCPCS: 36415; 80053; 84403; 85025

== ENCOUNTER 2018-10-18 09:22 | Outpatient (CLI) | payer OTHER ==
[2018-10-18 12:46] LABS: BILIRUBIN,DIRECT 0.1 mg/dL (0.1-0.5); BILIRUBIN,TOTAL 0.8 mg/dL (0.2-1.0); TOTAL PROTEIN 6.8 g/dL (6.7-8.2)
== END 2018-10-18 09:23 | disposition home or self-care (01) ==
LOC: LAB.WCP 09:22
PROVIDERS: ATTEND Internal Medicine Critical Care Medicine
DX: J67.9 Hypersensitivity pneumonitis due to unspecified organic dust (principal); Z79.899 Other long term (current) drug therapy
CPT/HCPCS: 36415; 80076

== ENCOUNTER 2018-11-10 10:04 | Outpatient (CLI) | payer OTHER ==
--- NOTE | 2018-11-10 15:29 | XRAY Report ---
Reason: SHOULDER JOINT PAIN,LEFT Procedure Date: 11/10/2018 Accession Number: [id number] / [id number] Procedure: WCP - Shoulder 2 View LT CPT Code: FULL RESULT: EXAM: LEFT SHOULDER RADIOGRAPHY EXAM DATE: 11/10/2018 10:12 AM. CLINICAL HISTORY: SHOULDER JOINT Pain, left. COMPARISON: None. TECHNIQUE: 2 views. FINDINGS: Bones: Normal. No fracture or bone lesion. Joints: No evidence of dislocation. 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 Soft tissues: The visualized hemithorax is unremarkable. No soft tissue swelling. IMPRESSION: 1. No evidence of fracture or dislocation. 2. 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 [facility]
== END 2018-11-10 10:05 | disposition home or self-care (01) ==
LOC: DI.WCP 10:04
PROVIDERS: ATTEND Family Medicine
DX: M19.012 Primary osteoarthritis, left shoulder (principal)

== ENCOUNTER 2018-11-28 09:19 | Outpatient (CLI) | payer OTHER ==
[2018-11-28 12:52] LABS: HEMOGLOBIN A1C 0.62 g/dL; HEMOGLOBIN A1C % 6.2 % (4.6-6.2)
== END 2018-11-28 09:20 | disposition home or self-care (01) ==
LOC: LAB.WCP 09:19
PROVIDERS: ATTEND Family Medicine
DX: E11.9 Type 2 diabetes mellitus without complications (principal)
CPT/HCPCS: 36415; 83036

== ENCOUNTER 2019-02-24 08:35 | Outpatient (CLI) | payer OTHER ==
[2019-02-24 12:00] LABS: CALCIUM 9.2 mg/dL (8.5-10.3); CREATININE 1.4 mg/dL (0.6-1.2)
[2019-02-24 12:15] LABS: HB2 TOTAL 14.2 g/dL; HEMOGLOBIN A1C 0.63 g/dL; HEMOGLOBIN A1C % 6.2 % (4.6-6.2)
[2019-02-24 12:30] LABS: CREATININE,URINE 38.4 mg/dL
[2019-02-24 12:36] LABS: MICROALBUMIN,URINE < 0.2 mg/dL (0-300.0)
== END 2019-02-24 23:59 | disposition home or self-care (01) ==
LOC: LAB.N 08:35
PROVIDERS: ATTEND Family Medicine
DX: R73.03 Prediabetes (principal); E29.1 Testicular hypofunction
CPT/HCPCS: 36415; 80048; 81599; 82043; 82570; 83036; 84402; 84403

== ENCOUNTER 2019-05-31 09:52 | Outpatient (CLI) | payer OTHER ==
--- NOTE | 2019-06-01 08:07 | DEXA Report ---
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 System. Regions measured are the AP Spine, femoral neck, and if needed forearm. COMPARISON: None. In accordance with the International Society for Clinical Densitometry (ISCD) guidelines, data from previous exams may be reanalyzed using current recommendations and techniques. This is done to allow a more accurate basis for comparison with the current study. FINDINGS: The data for the lumbar spine is as follows: BMD (g/cm/cm) T-SCORE Z-SCORE REGION L1 0.976 -1.5 -1.3 L2 0.992 -2.1 -1.8 L3 1.110 -1.1 -0.8 L4 1.354 1.0 1.2 TOTAL 1.121 -0.8 -0.6 NOTE: All evaluable vertebrae are used for classification The data for the hip is as follows: BMD (g/cm/cm) T-SCORE Z-SCORE REGION Neck 0.824 -1.9 -0.8 TOTAL 0.994 -0.7 -0.2 NOTE: The femoral neck or total proximal femur, whichever is lowest, is used for classification. IMPRESSION: THE WHO CLASSIFICATION BASED ON THE INTERNATIONAL REFERENCE STANDARD IS OSTEOPENIA. THE FRACTURE RISK IS INCREASED. RECOMMENDATION: Patients with diagnosis of osteoporosis or osteopenia should have regular bone mineral density assessment. For those eligible for Medicare, routine testing is allowed once every 2 years. Testing frequency can be increased for patients who have rapidly progressing disease or for those who are receiving medical therapy to restore bone mass. COMMENT: World Health Organization (WHO) definitions for osteoporosis and osteopenia: NORMAL BMD: T-score at -1.0 or higher, fracture risk is low OSTEOPENIA BMD: T-score between -1.0 and -2.5, fracture risk is increased. OSTEOPOROSIS BMD: T-score at -2.5 or lower, fracture risk is high. National Osteoporosis Foundation recommends: 1. Obtain adequate dietary calcium (at least 1200 mg per day) and vitamin D (400-800 international units per day). 2. Participate, as appropriate, in regular weightbearing and muscle-strengthening exercise. 3. Avoid tobacco use and reduce alcohol and caffeine intake. 4. For more detailed information see the website at www.NOF.org.
== END 2019-05-31 09:53 | disposition home or self-care (01) ==
LOC: DI 09:52
PROVIDERS: ATTEND Family Medicine
DX: J84.10 Pulmonary fibrosis, unspecified (principal); R07.89 Other chest pain; E78.5 Hyperlipidemia, unspecified; I51.7 Cardiomegaly; I11.9 Hypertensive heart disease without heart failure; M85.88 Other specified disorders of bone density and structure, other site; Z79.52 Long term (current) use of systemic steroids
CPT/HCPCS: 77080; 93306

== ENCOUNTER 2019-06-06 10:35 | Outpatient (CLI) | payer OTHER ==
[2019-06-06 13:11] LABS: HB2 TOTAL 14.4 g/dL; HEMOGLOBIN A1C 0.64 g/dL; HEMOGLOBIN A1C % 6.2 % (4.6-6.2)
== END 2019-06-06 23:59 ==
LOC: LAB.N 10:35
PROVIDERS: ATTEND Family Medicine
DX: R73.03 Prediabetes (principal)
CPT/HCPCS: 36415; 83036

== ENCOUNTER 2019-10-05 07:34 | Outpatient (CLI) | payer BC ==
[2019-10-05 12:04] LABS: ALBUMIN 4.4 g/dL (3.2-5.5); ALBUMIN/GLOBULIN RATIO 1.5 (1.0-2.2); BILIRUBIN,TOTAL 0.7 mg/dL (0.2-1.0); CREATININE 1.3 mg/dL (0.6-1.2); TOTAL PROTEIN 7.3 g/dL (6.7-8.2)
== END 2019-10-05 23:59 | disposition home or self-care (01) ==
LOC: LAB.WCP 07:34
PROVIDERS: ATTEND Family Medicine
DX: N18.3 Chronic kidney disease, stage 3 (moderate) (principal)
CPT/HCPCS: 36415; 80053

== ENCOUNTER 2019-10-23 08:00 | Outpatient (CLI) | payer BC | END 2019-10-23 23:59 | disposition home or self-care (01) | LOC: LAB.WCP 08:00 | PROVIDERS: ATTEND Naturopath | DX: M79.2 Neuralgia and neuritis, unspecified (principal); D64.9 Anemia, unspecified | CPT/HCPCS: 36415; 81599; 82955 ==

== ENCOUNTER 2019-12-08 08:27 | Outpatient (CLI) | payer BC ==
[2019-12-08 11:41] LABS: CALCIUM 9.3 mg/dL (8.5-10.3); CREATININE 1.3 mg/dL (0.6-1.2)
[2019-12-08 11:52] LABS: HB2 TOTAL 15.6 g/dL; HEMOGLOBIN A1C 0.6 g/dL; HEMOGLOBIN A1C % 5.7 % (4.6-6.2)
== END 2019-12-08 08:28 | disposition home or self-care (01) ==
LOC: LAB.WCP 08:27
PROVIDERS: ATTEND Family Medicine
DX: N18.3 Chronic kidney disease, stage 3 (moderate) (principal); R73.03 Prediabetes
CPT/HCPCS: 36415; 80048; 83036

== ENCOUNTER 2020-01-04 12:41 | Outpatient (CLI) | payer BC ==
[2020-01-04 19:05] LABS: BASOPHILS % (AUTO) 0.4 %; EOSINOPHILS # (AUTO) 0.1 10^3/uL (0.0-0.7); HGB - HEMOGLOBIN 14.3 g/dL (14.0-18.0); LYMPHOCYTES # (AUTO) 0.6 10^3/uL (1.5-3.5); LYMPHOCYTES % (AUTO) 11.9 %; MEAN CORPUSCULAR HGB CONC 31.8 g/dL (32.0-36.0); MEAN CORPUSCULAR VOLUME 97.2 fL (80.0-94.0); MEAN PLATELET VOLUME 9.8 fL (7.4-11.4); MONOCYTES # (AUTO) 0.6 10^3/uL (0.0-1.0); MONOCYTES % (AUTO) 10.9 %; NEUTROPHILS # (AUTO) 3.9 10^3/uL (1.5-6.6); NEUTROPHILS % (AUTO) 75.4 %; PLT - PLATELET COUNT 277 10^3/uL (130-450); RED BLOOD COUNT 4.62 10^6/uL (4.70-6.10); RED CELL DISTRIBUTION WIDTH 13.1 % (12.0-15.0); WHITE BLOOD COUNT 5.1 x10^3/uL (4.8-10.8)
[2020-01-04 19:27] LABS: CALCIUM 9.1 mg/dL (8.5-10.3); CREATININE 1.3 mg/dL (0.6-1.2)
[2020-01-04 19:35] LABS: INR 1.1 (0.8-1.2); PT - PROTHROMBIN TIME 12.4 secs (9.9-12.6)
== END 2020-01-04 23:59 | disposition home or self-care (01) ==
LOC: LAB.WCP 12:41
PROVIDERS: ATTEND Family Medicine
DX: Z01.818 Encounter for other preprocedural examination (principal)
CPT/HCPCS: 36415; 80048; 85025; 85610; 85730

== ENCOUNTER 2020-01-08 15:29 | Outpatient (CLI) | payer BC ==
--- NOTE | 2020-01-08 16:19 | XRAY Report ---
PROCEDURE: Chest 1 View X-Ray INDICATIONS: PREOP TECHNIQUE: One view of the chest was acquired. COMPARISON: Chest CT without contrast, 04/15/2017. FINDINGS: Surgical changes and devices: None. Lungs and pleura: No pleural effusions or pneumothorax. Lungs are clear. Mediastinum: Mediastinal contours appear normal. Heart size is normal. Bones and chest wall: No suspicious bony lesions. Overlying soft tissues appear unremarkable. IMPRESSION: No acute cardiopulmonary disease. Reviewed by: Nakul Dickerson MD on 01/08/2020 4:18 PM PDT Approved by: Nakul Dickerson MD on 01/08/2020 4:18 PM PDT Station ID: [id number]
== END 2020-01-08 15:30 | disposition home or self-care (01) ==
LOC: DI.N 15:29
PROVIDERS: ATTEND Family Medicine
DX: Z01.818 Encounter for other preprocedural examination (principal)
CPT/HCPCS: 71045

== ENCOUNTER 2020-06-28 11:32 | Outpatient (CLI) | payer BC ==
[2020-06-28 12:34] LABS: BASOPHILS % (AUTO) 0.3 %; EOSINOPHILS # (AUTO) 0.1 10^3/uL (0.0-0.7); EOSINOPHILS % (AUTO) 1.3 %; HGB - HEMOGLOBIN 14.1 g/dL (14.0-18.0); LYMPHOCYTES # (AUTO) 0.7 10^3/uL (1.5-3.5); LYMPHOCYTES % (AUTO) 8.9 %; MEAN CORPUSCULAR HEMOGLOBIN 30.9 pg (27.0-31.0); MEAN CORPUSCULAR HGB CONC 33.2 g/dL (32.0-36.0); MEAN PLATELET VOLUME 9.5 fL (7.4-11.4); MONOCYTES # (AUTO) 0.8 10^3/uL (0.0-1.0); MONOCYTES % (AUTO) 10.7 %; NEUTROPHILS % (AUTO) 78.1 %; PLT - PLATELET COUNT 262 10^3/uL (130-450); RED BLOOD COUNT 4.57 10^6/uL (4.70-6.10); WHITE BLOOD COUNT 7.7 x10^3/uL (4.8-10.8)
--- OUTSIDE RECORDS SUMMARY | 2020-07-03 01:37 | EXTERNAL MEDICAL SUMMARY RPT | Continuity of Care Document ---
: Demographics Phone Unavailable Preferred Language Spanish Marital Status Unknown Worship Affiliation Unknown Race Unknown Ethnic Group Unknown Author Organization [place] Address [address] [id number] Phone Care Team Providers Name Role Phone Hayden EVANS, Rozina Unavailable Angeline Connors Unavailable Unavailable Karen Rasmussen Unavailable Unavailable HAYDEN PENA Unavailable Unavailable Problems date description facility 2018-03-02 08:00 SECONDARY POLYCYTHEMIA [facility] 2018-03-02 08:00 SLEEP APNEA, UNSPECIFIED [facility] 2018-03-02 08:00 HYPERSENSITIVITY PNEUMONITIS DUE 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 2018-04-07 10:00 RESPIRATORY FAILURE, UNSPECIFIED [facility] WITH HYPOXIA 2018-05-01 13:37 ZOSTER WITHOUT COMPLICATIONS [facility] 2018-05-01 13:37 RASH AND OTHER NONSPECIFIC SKIN [facility] ERUPTION 2018-05-01 13:37 DIZZINESS AND GIDDINESS [facility] 2018-06-01 08:09 ZOSTER WITHOUT COMPLICATIONS [facility] 2018-06-01 08:09 SECONDARY POLYCYTHEMIA [facility] 2018-06-01 08:09 SLEEP APNEA, UNSPECIFIED [facility] 2018-06-01 08:09 HYPERSENSITIVITY PNEUMONITIS DUE 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 2018-06-05 09:00 PULMONARY FIBROSIS, UNSPECIFIED [facility] 2018-06-05 09:00 RASH AND OTHER NONSPECIFIC SKIN [facility] ERUPTION 2018-06-05 09:00 PENITENTIARY (CURRENT) USE OF [facility] SYSTEMIC STEROIDS 2018-06-05 09:00 PENITENTIARY (CURRENT) USE OF ASPIRIN [facility] 2018-06-15 10:43 HYPERSENSITIVITY PNEUMONITIS DUE 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 TO UNSPECIFIED ORGANIC DUST 2018-08-18 08:46 OTHER PENITENTIARY (CURRENT) DRUG [facility] THERAPY 2018-09-07 08:47 ZOSTER WITHOUT COMPLICATIONS [facility] 2018-09-07 08:47 SECONDARY POLYCYTHEMIA [facility] 2018-09-07 08:47 SLEEP APNEA, UNSPECIFIED [facility] 2018-09-07 08:47 HYPERSENSITIVITY PNEUMONITIS DUE 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 COMPLICATIONS 2018-09-16 08:00 TESTICULAR HYPOFUNCTION [facility] 2018-09-16 08:00 HYPERSENSITIVITY PNEUMONITIS DUE [facility] TO UNSPECIFIED ORGANIC DUST 2018-09-16 08:00 OTHER PENITENTIARY (CURRENT) DRUG [facility] THERAPY 2019-10-05 07:34 CHRONIC KIDNEY DISEASE, STAGE 3 [facility] (MODERATE) 2019-10-23 08:00 ANEMIA, UNSPECIFIED [facility] 2019-10-23 08:00 NEURALGIA AND NEURITIS, [facility] UNSPECIFIED 2019-12-08 08:27 CHRONIC KIDNEY DISEASE, STAGE 3 [facility] (MODERATE) 2019-12-08 08:27 PREDIABETES [facility] 2020-01-04 12:41 ENCOUNTER FOR OTHER PREPROCEDURAL [facility] EXAMINATION 2020-01-08 15:29 ENCOUNTER FOR OTHER PREPROCEDURAL [facility] EXAMINATION 2020-06-28 11:32 ENCOUNTER FOR PREPROCEDURAL [facility] LABORATORY EXAMINATION Allergies date description facility BACLOFEN [facility] O[facility]ONE [facility] POLYETHYLENE GLYCOL [facility] IODINATED DIAGNOSTIC AGENTS [facility] NO ALLERGY INFORMATION ON FILE [facility] MORPHINE [facility] ACETAMINOPHEN [facility] BEE VENOM PROTEIN (HONEY BEE) [facility] MAGNESIUM OXIDE [facility] MOXIFLOXACIN [facility] OMEPRAZOLE [facility] LEVOFLOXACIN [facility] LISINOPRIL-HYDROCHLOROTHIAZIDE [facility] NO KNOWN ALLERGIES [facility] NO ALLERGY INFORMATION AVAILABLE [facility] NO KNOWN ALLERGIES [facility] NO ALLERGY INFORMATION ON FILE [facility] PENICILLINS [facility] SULFA (SULFONAMIDE ANTIBIOTICS) [facility] CODEINE [facility]OD[facility] OXYCODONE [facility] ACETAMINOPHEN [facility] METHOCARBAMOL [facility] CHLORTHALIDONE [facility] TRAMADOL [facility] METHADONE [facility] BEE VENOM PROTEIN (HONEY BEE) [facility] MAGNESIUM OXIDE [facility] HYDROCODONE-ACETAMINOPHEN [facility] NO KNOWN ENVIRONMENTAL ALLERGIES [facility] PENICILLINS [facility] MORPHINE [facility] Medications date description facility null [facility] null [facility] PREGABALIN [facility] PREGABALIN [facility] 2020-05-06 00:00:00 null [facility] 2020-05-06 00:00:00 null [facility] 2020-05-06 00:00:00 PREGABALIN [facility] 2020-05-06 00:00:00 PREGABALIN [facility] 2020-06-19 00:00:00 null [facility] 2020-06-19 00:00:00 null [facility] 2020-06-19 00:00:00 PREGABALIN [facility] 2020-06-19 00:00:[facility] Results test status date ordered by attending specimen candelario e null F 2020-06-28 MOUR.20 Nicholas Mourning 2020-06 12:18:00 12:16:00 null F 2020-06-28 MOUR.20 [facility] Mourning 2020-06 12:18:00 12:16:00 null F 2020-06-28 MOUR.20 Nicholas Mourning 2020-06 12:18:00 12:16:00 null F 2020-06-28 MOUR.20 Nicholas Mourning 2020-06 12:18:00 12:16:00 null F 2020-06-28 MOUR.20 [facility] Mourning 2020-06 12:18:00 12:16:00 null F 2020-06-28 MOUR.20 Nicholas Mourning 2020-06 12:18:00 12:16:00 null F 2020-06-28 MOUR.20 Nicholas Mourning 2020-06 12:18:00 12:16:00 null F 2020-06-28 MOUR.20 Nicholas Mourning 2020-06 12:18:00 12:16:00 null F 2020-06-28 MOUR.20 Nicholas Mourning 2020-06 12:18:00 12:16:00 null F 2020-06-28 MOUR.20 Nicholas Mourning 2020-06 12:18:00 12:16:00 null F 2020-06-28 MOUR.20 Nicholas Mourning 2020-06 12:18:00 12:16:00 null F 2020-06-28 MOUR.20 Nicholas Mourning 2020-06 12:18:00 12:16:00 null F 2020-06-28 MOUR.20 Nicholas Mourning 2020-06 12:18:00 12:16:00 null F 2020-06-28 MOUR.20 Nicholas Mourning 2020-06 12:18:00 12:16:00 null F 2020-06-28 MOUR.20 Nicholas Cárdenas 2020-06 12:18:00 12:16:00 null F 2020-06-28 MOUR.20 Nicholas Cárdenas 2020-06 12:18:00 12:16:00 null F 2020-06-28 MOUR.20 Nicholas Cárdenas 2020-06 12:18:00 12:16:00 facility observation status value reference units lab abnor mal line range code notes [facility] F 0.0 0.0-0.1 10 [facility] 3/ [facility] F 0.1 0.0-0.7 10 [facility] 3/uL [facility] F 42.5 42.0-52.0 % [facility] F 14.1 14.0-18.0 g/dL [facility] F 0.7 1.5-3.5 10 [facility] 3/uL [facility] F 30.9 27.0-31.0 pg [facility] F 33.2 32.0-36.0 g/dL [facility] F 93.0 80.0-94.0 fL [facility] F 0.8 0.0-1.0 10 [facility] 3/uL [facility] F 9.5 7.4-11.4 fL [facility] F 6.0 1.5-6.6 10 [facility] 3/uL [facility] F 0.0 unknown /[facility] F 0.00 unknown x10 [facility] 3/uL [facility] F 262 130-450 10 [facility] 3/uL [facility] F 4.57 4.70-6.10 10 [facility] 6/uL [facility] F 14.0 12.0-15.0 % [facility] F 7.7 4.8-10.8 x10 [facility] 3/uL test status date ordered by attending specimen candelario e T unknown 2020-06-28 unknown unknown unknown 00:00:00 BASOPHILS_AUTO_ unknown 2020-06-28 unknown unknown unknow n 00:00:00 T unknown 2020-06-28 unknown unknown unknown 00:00:00 EOSINOPHILS_AUTO unknown 2020-06-28 unknown unknown unkno wn _ 00:00:00 T unknown 2020-06-28 unknown unknown unknown 00:00:00 T unknown 2020-06-28 unknown unknown unknown 00:00:00 T unknown 2020-06-28 unknown unknown unknown 00:00:00 LYMPHOCYTES_AUTO unknown 2020-06-28 unknown unknown unkno wn _ 00:00:00 T unknown 2020-06-28 unknown unknown unknown 00:00:00 T unknown 2020-06-28 unknown unknown unknown 00:00:00 T unknown 2020-06-28 unknown unknown unknown 00:00:00 T unknown 2020-06-28 unknown unknown unknown 00:00:00 MONOCYTES_AUTO_ unknown 2020-06-28 unknown unknown unknow n 00:00:00 T unknown 2020-06-28 unknown unknown unknown 00:00:00 T unknown 2020-06-28 unknown unknown unknown 00:00:00 NEUTROPHILS_AUTO unknown 2020-06-28 unknown unknown unkno wn _ 00:00:00 T unknown 2020-06-28 unknown unknown unknown 00:00:00 T unknown 2020-06-28 unknown unknown unknown 00:00:00 T unknown 2020-06-28 unknown unknown unknown 00:00:00 T unknown 2020-06-28 unknown unknown unknown 00:00:00 red_blood_cell_d unknown 2020-06-28 unknown unknown unkno wn istribution_width 00:00:00 mean_corpuscular unknown 2020-06-28 unknown unknown unkno wn _hemoglobin_RBC 00:00:00 mean_corpuscular unknown 2020-06-28 unknown unknown unkno wn _hemoglobin_conce 00:00:00 ntration_rbc neutrophil_count unknown 2020-06-28 unknown unknown unkno wn _blood 00:00:00 lymphocyte_count unknown 2020-06-28 unknown unknown unkno wn _blood 00:00:00 monocyte_count_b unknown 2020-06-28 unknown unknown unkno wn lood 00:00:00 basophil_count_b unknown 2020-06-28 unknown unknown unkno wn lood 00:00:00 mean_platelet_vo unknown 2020-06-28 unknown unknown unkno wn lume 00:00:00 eosinophil_count unknown 2020-06-28 unknown unknown unkno wn _blood 00:00:00 mean_corpuscular unknown 2020-06-28 unknown unknown unkno wn _volume_RBC 00:00:00 Hematocrit_Volum unknown 2020-06-28 unknown unknown unkno wn e_Fraction_of_Blo 00:00:00 od_by_Automated_c ount hematocrit_blood unknown 2020-06-28 unknown unknown unkno wn 00:00:00 hemoglobin_blood unknown 2020-06-28 unknown unknown unkno wn 00:00:00 platelet_count unknown 2020-06-28 unknown unknown unknown 00:00:00 Leukocytes_volum unknown 2020-06-28 unknown unknown unkno wn e_in_Blood_by_Aut 00:00:00 omated_count erythrocyte_RBC_ unknown 2020-06-28 unknown unknown unkno wn count 00:00:00 leukocyte_count_ unknown 2020-06-28 unknown unknown unkno wn blood 00:00:00 Basophils_volume unknown 2020-06-28 unknown unknown unkno wn _in_Blood_by_Manu 00:00:00 al_count eosinophil_count unknown 2020-06-28 unknown unknown unkno wn _blood 00:00:00 Hemoglobin_Mass_ unknown 2020-06-28 unknown unknown unkno wn volume_in_Blood 00:00:00 lymphocyte_count unknown 2020-06-28 unknown unknown unkno wn _blood 00:00:00 monocyte_count_b unknown 2020-06-28 unknown unknown unkno wn lood 00:00:00 neutrophil_count unknown 2020-06-28 unknown unknown unkno wn _blood 00:00:00 Platelet_mean_vo unknown 2020-06-28 unknown unknown unkno wn lume_Entitic_volu 00:00:00 me_in_Blood_by_Re es-Sabine Platelets_volume unknown 2020-06-28 unknown unknown unkno wn _in_Blood_by_Auto 00:00:00 mated_count MCH_Entitic_mass unknown 2020-06-28 unknown unknown unkno wn _by_Automated_cou 00:00:00 nt MCV_Entitic_volu unknown 2020-06-28 unknown unknown unkno wn me_by_Automated_c 00:00:00 ount Erythrocyte_dist unknown 2020-06-28 unknown unknown unkno wn ribution_width_Ra 00:00:00 tio_by_Automated_ count Erythrocytes_vol unknown 2020-06-28 unknown unknown unkno wn ume_in_Blood_by_A 00:00:00 utomated_count facility observation status value reference units lab abnor mal line range code notes [facility] T unknown 0.0 10 unknown BASO_ unknow n unknown [facility] 3/UL AUTO_ [facility] BASOPHILS_AU unknown 0.0 10 unknown BA_ unknown unknown [facility] TO_ 3/UL [facility] T unknown 0.1 10 unknown EOS_A unknow n unknown [facility] 3/UL UTO_ [facility] EOSINOPHILS_ unknown 0.1 10 unknown EO_ unknown unknown [facility] AUTO_ 3/UL [facility] T unknown 42.5 unknown % HCT unknow n unknown [facility] T unknown 14.1 unknown g/dL HGB unknow n unknown [facility] T unknown 0.7 10 unknown LYMPH unknow n unknown [facility] 3/UL _AUTO_ [facility] LYMPHOCYTES_ unknown 0.7 10 unknown LY_ unknown unknown [facility] AUTO_ 3/UL [facility] T unknown 30.9 unknown pg MCH unknow n unknown [facility] T unknown 33.2 unknown g/dL MCHC unknow n unknown [facility] T unknown 93.0 unknown fL MCV unknow n unknown [facility] T unknown 0.8 10 unknown MONO_ unknow n unknown [facility] 3/UL AUTO_ [facility] MONOCYTES_AU unknown 0.8 10 unknown MO_ unknown unknown [facility] TO_ 3/UL [facility] T unknown 9.5 unknown fL MPV unknow n unknown [facility] T unknown 6.0 10 unknown NEUT_ unknow n unknown [facility] 3/UL AUTO_ [facility] NEUTROPHILS_ unknown 6.0 10 unknown NE_ unknown unknown [facility] AUTO_ 3/UL [facility] T unknown 262 10 unknown PLT unknow n unknown [facility] 3/UL [facility] T unknown 4.57 unknown RBC unknow n unknown [facility] 10 6/UL [facility] T unknown 14.0 unknown % RDW unknow n unknown [facility] T unknown 7.7 unknown WBC unknow n unknown [facility] X10 [facility] 3/UL [facility] red_blood_ce unknown 14.0 unknown % _1030 unknown unknown [facility] ll_distributi [facility] on_width [facility] mean_corpusc unknown 30.9 unknown pg _1031 unknown unknown [facility] ular_hemoglob [facility] in_RBC [facility] mean_corpusc unknown 33.2 unknown g/dL _1702 unknown unknown [facility] ular_hemoglob 9 [facility] in_concentrat ion_rbc [facility] neutrophil_c unknown 6.0 10 unknown _2418 unknown unknown [facility] ount_blood 3/UL [facility] lymphocyte_c unknown 0.7 10 unknown _2420 unknown unknown [facility] ount_blood 3/UL [facility] monocyte_cou unknown 0.8 10 unknown _2422 unknown unknown [facility] nt_blood 3/UL [facility] basophil_cou unknown 0.0 10 unknown _2427 unknown unknown [facility] nt_blood 3/UL [facility] mean_platele unknown 9.5 unknown fL _2784 unknown unknown [facility] t_volume [facility] eosinophil_c unknown 0.1 10 unknown _285 unknown unknown [facility] ount_blood 3/UL [facility] mean_corpusc unknown 93.0 unknown fL _315 unknown unknown [facility] ular_volume_R [facility] Hematocrit_V unknown 42.5 unknown % _4544 unknown unknown [facility] olume_Fractio -3 [facility] n_of_Blood_by _Automated_co unt [facility] hematocrit_b unknown 42.5 unknown % _64 unknown unknown [facility] lood [facility] hemoglobin_b unknown 14.1 unknown g/dL _65 unknown unknown [facility] lood [facility] platelet_cou unknown 262 10 unknown _66 unknown unknown [facility] nt 3/UL [facility] Leukocytes_v unknown 7.7 unknown _6690 unknown unknown [facility] olume_in_Bloo X10 -2 [facility] d_by_Automate 3/UL d_count [facility] erythrocyte_ unknown 4.57 unknown _67 unknown unknown [facility] RBC_count 10 6/UL [facility] leukocyte_co unknown 7.7 unknown _68 unknown unknown [facility] unt_blood X10 [facility] 3/UL [facility] Basophils_vo unknown 0.0 10 unknown _705- unknown unknown [facility] lume_in_Blood 3/UL 4 [facility] _by_Manual_co unt [facility] eosinophil_c unknown 0.1 10 unknown _712- unknown unknown [facility] ount_blood 3/UL 0 [facility] Hemoglobin_M unknown 14.1 unknown g/dL _718- unknown unknown [facility] ass_volume_in 7 [facility] _Blood [facility] lymphocyte_c unknown 0.7 10 unknown _732- unknown unknown [facility] ount_blood 3/UL 8 [facility] monocyte_cou unknown 0.8 10 unknown _743- unknown unknown [facility] nt_blood 3/UL 5 [facility] neutrophil_c unknown 6.0 10 unknown _752- unknown unknown [facility] ount_blood 3/UL 6 [facility] Platelet_mea unknown 9.5 unknown fL _776- unknown unknown [facility] n_volume_Enti 5 [facility] tic_volume_in _Blood_by_Ree s[facility] Platelets_vo unknown 262 10 unknown _777- unknown unknown [facility] lume_in_Blood 3/UL 3 [facility] _by_Automated _count [facility] MCH_Entitic_ unknown 30.9 unknown pg _785- unknown unknown [facility] mass_by_Autom 6 [facility] ated_count [facility] MCV_Entitic_ unknown 93.0 unknown fL _787- unknown unknown [facility] volume_by_Aut 2 [facility] omated_count [facility] Erythrocyte_ unknown 14.0 unknown % _788- unknown unknown [facility] distribution_ 0 [facility] width_Ratio_b y_Automated_c ount [facility] Erythrocytes unknown 4.57 unknown _789- unknown unknown [facility] _volume_in_Bl 10 6/UL 8 [facility] ood_by_Automa ted_count Social History date description facility [id number]
== END 2020-06-28 11:33 | disposition home or self-care (01) ==
LOC: LAB 11:32
PROVIDERS: ATTEND Orthopaedic Surgery
DX: Z01.812 Encounter for preprocedural laboratory examination (principal)
CPT/HCPCS: 36415; 85025

== ENCOUNTER 2020-07-12 08:14 | Outpatient (CLI) | payer BC ==
[2020-07-12 12:24] LABS: HEMOGLOBIN A1c% 6.3 % (4.27-6.07)
[2020-07-12 12:25] LABS: ALBUMIN 4.1 g/dL (3.2-5.5); ALBUMIN/GLOBULIN RATIO 1.4 (1.0-2.2); ALKALINE PHOSPHATASE 54 IU/L (42-121); ALT ALANINE AMINOTRANSFERASE 37 IU/L (10-60); AST ASPARTATE AMINOTRANSFERASE 28 IU/L (10-42); BILIRUBIN,TOTAL 0.6 mg/dL (0.2-1.0); BUN - BLOOD UREA NITROGEN 30 mg/dL (6-20); CALCIUM 9.4 mg/dL (8.5-10.3); CARBON DIOXIDE - CO2 28 mmol/L (21-32); CHLORIDE 99 mmol/L (101-111); CHOL/HDL RATIO 7.9 (<5.0); CHOLESTEROL 301 mg/dL; CREATININE 1.5 mg/dL (0.6-1.2); GLUCOSE 119 mg/dL (70-100); HDL CHOLESTEROL 38 mg/dL; LDL CHOLESTEROL,CALCULATED 191 mg/dL; VLDL CHOLESTEROL 72 mg/dL
[2020-07-12 12:33] LABS: CREATININE,URINE 221.8 mg/dL
== END 2020-07-12 23:59 | disposition home or self-care (01) ==
LOC: LAB.WCP 08:14
PROVIDERS: ATTEND Physician Assistant Medical
DX: E11.9 Type 2 diabetes mellitus without complications (principal); E29.1 Testicular hypofunction
CPT/HCPCS: 36415; 80053; 80061; 82043; 82570; 83036; 83721; 84403

== ENCOUNTER 2020-10-30 08:03 | Outpatient (CLI) | payer BC ==
--- NOTE | 2020-10-30 12:57 | XRAY Report ---
PROCEDURE: Wrist 4 View LT INDICATIONS: CRUSHING INJURY OF L WRIST TECHNIQUE: 4 views of the wrist were acquired. COMPARISON: None FINDINGS: Bones: No fractures or dislocations. No suspicious bony lesions. Radiocarpal and first CMC degener ative change are present. Scaphoid view: No visualized fracture. Soft tissues: No suspicious soft tissue calcifications. IMPRESSION: No visualized acute fracture or dislocation. However, occult injury cannot be excluded. Recommend brenda rt interval imaging follow-up in 7-10 days as clinically indicated for additional evaluation. Reviewed by: Meliza Sherwood MD on 10/30/2020 12:56 PM PDT Approved by: Meliza Sherwood MD on 10/30/2020 12:56 PM PDT Station ID: [id number]
== END 2020-10-30 23:59 | disposition home or self-care (01) ==
LOC: DI.N 08:03
PROVIDERS: ATTEND Nurse Practitioner
DX: S67.32XA Crushing injury of left wrist, initial encounter (principal)

== ENCOUNTER 2020-11-20 11:16 | Emergency (ER) | payer BC ==
--- NOTE | 2020-11-20 11:48 | ED Physician Documentation ---
History of Present Illness - Stated complaint Stated Complaint: SLURRED SPEECH - Chief complaint Chief Complaint: Neuro - Additonal information Additional information: 75-year-old male presents to the emergency department for evaluation of in termittent slurred speech and difficulty walking. He reports a history of shingles that resulted in persistent right-sided pain and lower extremity pain. He did have a spinal stimulator placed about [address] Anderson at [facility]. He states that for about the last 6 weeks he often feels like his legs are awkward when he is walking and as though he wants to fall. In the room he has very clear fluid speech but he describes it as slurred. He states that his mouth feels dry. He reports a history of a TIA 30 years ago for which the etiology was unclear. The symptoms of that TIA were lapse in consciousness and slurred speech. Past medical history includes hypertension which is well controlled on medications. Patient also takes a daily aspirin. He denies chest pain or shortness of air. Review of Systems Constitutional: denies: Fever, Chills Eyes: reports: Reviewed and negative, Other (no diplopia, blurred vision, headaches) Ears: reports: Reviewed and negative Nose: reports: Reviewed and negative Throat: reports: Reviewed and negative Cardiac: reports: Pedal edema. denies: Chest pain / pressure, Palpitations, Calf pain Respiratory: denies: Dyspnea, Cough, Hemoptysis GI: reports: Abdominal Pain, Abdominal Swelling, Nausea, Vomiting. denies: Constipation, Diarrhea, Hematemesis, Bloody / black stool : denies: Dysuria, Frequency Skin: reports: Reviewed and negative Musculoskeletal: reports: Back pain Neurologic: reports: Generalized weakness, Difficulty speaking, Reviewed and negative. denies: Syncope, Seizure, Confused, Altered mental status, Headache, Head injury Psychiatric: reports: Reviewed and negative PD PAST MEDICAL HISTORY - Past Medical History Cardiovascular: Hypertension, High cholesterol Respiratory: Sleep apnea, Other Endocrine/Autoimmune: None GI: GERD, Diverticulitis : None HEENT: Chronic hearing loss Psych: Depression, Anxiety Musculoskeletal: Other Derm: Psoriasis - Past Surgical History Past Surgical History: Yes General: Appendectomy Cardiovascular: Other HEENT: Tonsil/Adenoidectomy - Present Medications Home Medications: Ambulatory Orders Medication Instructions Recorded Confirmed Aspirin [Aspir-Low] 81 mg PO DAILY 01/01/16 11/20/20 Felodipine [Felodipine ER] 10 mg PO DAILY 01/01/16 11/20/20 Omeprazole [PriLOSEC] 20 mg PO DAILY 01/01/16 11/20/20 Atorvastatin [Lipitor] 40 mg PO DAILY 07/07/17 11/20/20 Chlorthalidone 1 tab PO DAILY 07/07/17 11/20/20 PARoxetine [Paxil] 10 mg PO DAILY 07/07/17 11/20/20 lisinopriL [Lisinopril] 1 tab PO DAILY 07/21/17 11/20/20 predniSONE [Prednisone] 0.5 tab PO DAILY 06/01/18 11/20/20 Mycophenolate Mofetil [Cellcept] 500 mg PO BID 06/05/18 11/20/20 - Allergies Allergies/Adverse Reactions: Allergies Allergy/AdvReac Type Severity Reaction Status Date / Time cimetidine [From Tagamet] Allergy Unknown Verified 11/20/20 11:26 lisinopril Allergy Unknown Verified 11/20/20 11:26 niacin Allergy Unknown Verified 11/20/20 11:26 pravastatin [From Pravachol] Allergy Unknown Verified 11/20/20 11:26 rosuvastatin [From Crestor] Allergy Unknown Verified 11/20/20 11:26 - Social History Does the pt smoke?: No Smoking Status: Never smoker - Immunizations Immunizations are current?: No Immunizations: TDAP >10years/unknown PD ED PE EXPANDED - General General: Alert, No acute distress - Neck Neck: Supple w/out meningeal sx. No: Adenopathy - Cardiac Cardiac: Regular Rate, Radial strong equal, Pedal strong equal, Cap refill < 2 sec. No: Abnormal Rate - Respiratory Respiratory: Clear to ausultation mike. No: Distress, Labored - Abdomen Abdomen: Normal Bowel sounds, Distended. No: Tender to palpation, Rebound, Guarding - Derm Derm: Normal color, Warm and dry. No: Rash - Extremities Extremities: Normal. No: Deformity, Tenderness, Pedal edema bilateral, Right calf TTP/cord, Left calf TTP/cord - Neuro Neuro: Alert and Oriented X 3, CNII-XII intact, Cerebellar nl, Normal gait, Normal finger nose, Normal speech, Other (NIHSS 0). No: Nystagmus - GCS Eye Opening: Spontaneous Motor: Obeys Commands Verbal: Oriented Total: 15 Results - Vitals Vitals: Vital Signs - 24 hr 11/20/20 11/20/20 11/20/20 11:21 12:11 14:01 Temperature 36.4 C L Heart Rate 82 72 66 Respiratory 16 15 16 Rate Blood Pressure 124/80 135/78 H O2 Saturation 96 95 94 Oxygen O2 Source Room air - EKG (time done) 1201 Rate: Rate (enter#) (70) Rhythm: NSR [place]: LAD (early) Intervals: Normal AR. No: Prolonged QT QRS: Poor R wave progression, Low voltage Ischemia: Other (T wave flattening) Compare to prior EKG: Old EKG unavailable Computer interpretation: Agree with computer - Labs Labs: Laboratory Tests 11/20/20 11/20/20 11/20/20 12:10 12:10 12:10 WBC 4.1 L RBC 4.06 L Hgb 13.2 L Hct 39.7 L MCV 97.8 H MCH 32.5 H MCHC 33.2 RDW 13.3 Plt Count 260 MPV 8.8 Neut # (Auto) 2.2 Lymph # (Auto) 0.9 L Tucker # (Auto) 0.7 Eos # (Auto) 0.3 Baso # (Auto) 0.0 Absolute Nucleated RBC 0.00 Nucleated RBC % 0.0 Sodium 137 Potassium 3.8 Chloride 100 L Carbon Dioxide 26 Anion Gap 11.0 BUN 33 H Creatinine 1.6 H Estimated GFR (MDRD) 42 L Glucose 119 H Calcium 9.6 Total Bilirubin 0.5 AST 29 ALT 34 Alkaline Phosphatase 78 Troponin I High Sens 7.9 Total Protein 7.3 Albumin 4.4 Globulin 2.9 Albumin/Globulin Ratio 1.5 Lipase 30 - Rads (name of study) CT angio head Radiology: Final report received (No acute intracranial disease process. No large vessel occlusion vascular dissection or aneurysm. 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 Vertebral arteries are fully patent where well visualized.) PD MEDICAL DECISION MAKING - ED course Complexity details: reviewed results, re-evaluated patient, d/w patient, d/w family, d/w windows consultant ([facility]) ED course: 75-year-old male who has a history of postherpetic neuralgia who subsequently ended up with a spinal stimulator for pain control presents the emergency department with subacute intermittent slurring of speech as well as the sensation that his gait is altered. This has been occurring for 3 to 6 weeks. On presentation to the ER today he has no focal neuro deficits. Normal and intact cerebellar exam. His NIHSS score is 0. We did do screening labs that showed no acute abnormalities. Given the intermittent symptoms of slurring speech and altered gait a CT angio of the head and neck was completed. There was no acute intracranial process vascular dissection or aneurysm. No high- grade stenosis involving the internal carotid arteries. There was however high- grade short segment stenosis of the V4 segment of the right vertebral artery with decreased flow within that right vertebral artery. I did discuss this case with Dr. Mckeon a neurologist with [facility]. We discussed his history and exam. She does feel that given his age and the intermittent findings follow-up with neurology is warranted. He may in the future need an MRI however his stimulator would need to be deactivated before this could be done. 9 this gentleman does have a follow-up with [facility] Rasmussen upcoming. I have encouraged him to continue to discuss the symptoms and request a neurology consult./Referral. Patient is to return to the emergency department if he has worsening symptoms persistence of the symptoms, fevers or any other worrisome emergent neurologic concerns. Departure - Departure Disposition: 01 Home, Self Care Clinical Impression: Episodic ataxia with slurred speech Condition: Stable Record reviewed to determine appropriate education?: Yes Follow-Up: Karen Rasmussen PA-C [Primary Care Provider] - Comments: Ganesh rosenthal are seen in the emergency department today for intermittent slurring of the speech and the symptoms that you feel that you cannot walk normally. Here in the emergency department your neurological and cerebellar exam was normal. Your screening labs were normal. We did do at CT angiogram of your head and neck. There was a question if there is a possible decreased flow in a small segment of your right vertebral artery. I did discuss your symptoms with a neurologist Dr. Rosenthal through [facility]. She would recommend close follow-up with a neurologist. Please discuss this ED visit with your primary care provider. You will likely need an MRI of your head however your stimulator will need to be turned off before this can occur. Please return to the emergency department if you develop fevers, have persist ence or worsening of symptoms, cannot speak normally or Develop sudden severe headache or double vision. Please continue to take your daily aspirin as already prescribed.
[2020-11-20 12:13] LABS: BASOPHILS % (AUTO) 0.7 %; EOSINOPHILS # (AUTO) 0.3 10^3/uL (0.0-0.7); EOSINOPHILS % (AUTO) 6.1 %; HCT - HEMATOCRIT 39.7 % (42.0-52.0); HGB - HEMOGLOBIN 13.2 g/dL (14.0-18.0); LYMPHOCYTES # (AUTO) 0.9 10^3/uL (1.5-3.5); LYMPHOCYTES % (AUTO) 21.4 %; MEAN CORPUSCULAR HEMOGLOBIN 32.5 pg (27.0-31.0); MEAN CORPUSCULAR HGB CONC 33.2 g/dL (32.0-36.0); MEAN CORPUSCULAR VOLUME 97.8 fL (80.0-94.0); MEAN PLATELET VOLUME 8.8 fL (7.4-11.4); MONOCYTES # (AUTO) 0.7 10^3/uL (0.0-1.0); MONOCYTES % (AUTO) 17.7 %; NEUTROPHILS # (AUTO) 2.2 10^3/uL (1.5-6.6); NEUTROPHILS % (AUTO) 53.9 %; PLT - PLATELET COUNT 260 10^3/uL (130-450); RED BLOOD COUNT 4.06 10^6/uL (4.70-6.10); RED CELL DISTRIBUTION WIDTH 13.3 % (12.0-15.0); WHITE BLOOD COUNT 4.1 x10^3/uL (4.8-10.8)
--- NOTE | 2020-11-20 12:14 | XRAY Report ---
PROCEDURE: Chest 1 View X-Ray INDICATIONS: Chest pain TECHNIQUE: One view of the chest was acquired. COMPARISON: 01/08/2020 FINDINGS: Surgical changes and devices: None. Lungs and pleura: No pleural effusions or pneumothorax. Lungs are clear. Mediastinum: Mediastinal contours appear normal. Heart size is normal. Bones and chest wall: No suspicious bony lesions. Overlying soft tissues appear unremarkable. IMPRESSION: No acute cardiopulmonary disease process. Reviewed by: Ana Ghosh MD, PhD on 11/20/2020 12:13 PM PDT Approved by: Ana Ghosh MD, PhD on 11/20/2020 12:13 PM PDT Station ID: [id number]
[2020-11-20 12:30] LABS: ALBUMIN 4.4 g/dL (3.2-5.5); ALBUMIN/GLOBULIN RATIO 1.5 (1.0-2.2); BILIRUBIN,TOTAL 0.5 mg/dL (0.2-1.0); CALCIUM 9.6 mg/dL (8.5-10.3); CREATININE 1.6 mg/dL (0.6-1.2); POTASSIUM 3.8 mmol/L (3.5-5.0); TOTAL PROTEIN 7.3 g/dL (6.7-8.2)
[2020-11-20] MEDS ORDERED: IOVERSOL 320 100 ML VIAL IVP ONE ×2 (12:38→15:07)
[2020-11-20] MEDS ORDERED: SODIUM CHLORIDE 0.9% 1,000 ML IV STA (13:13)
--- NOTE | 2020-11-20 13:46 | CT Report ---
PROCEDURE: ANGIO HEAD W/WO INDICATIONS: L sided facial droop CONTRAST: IV CONTRAST: Optiray 320 ml: 80 PO CONTRAST: *NO PO CONTRAST TECHNIQUE: Precontrast 4.5 mm thick angled axial sections acquired from the foramen magnum to the vertex. Afte r the administration of intravenous contrast, 1 mm thick sections acquired through the [place] of [place] is. Postcontrast 4.5 mm thick sections then re-acquired from the foramen magnum to the vertex. 3-di mensional bscwkhv-xmysxvotz-kuxtjuytkw (MIP) and/or volume rendering reformats were acquired of the c entral intracranial vasculature. For radiation dose reduction, the following was used: automated ex posure control, adjustment of mA and/or kV according to patient size. COMPARISON: None FINDINGS: Image quality: Excellent. Anterior circulation: Intracranial internal carotid arteries are normal in flow. Dense atherosclero tic calcifications in the cavernous and clinoid segments of the internal carotid arteries bilaterally which cause mild to moderate narrowing of the vessels. The flow within the paired anterior cerebral arteries is normal and symmetric. The flow within the middle cerebral arteries is normal and symmetr ic. The anterior communicating artery is seen. No aneurysms are seen. Posterior circulation: Atherosclerotic calcifications noted in the proximal V4 segments of the verteb ral arteries bilaterally which causes moderate stenosis of the left and short segment, high-grade juan nosis of the right. There is mildly diminished flow in the V4 segment of the right vertebral artery r elative to the left distal to the high-grade stenosis. Flow within the posterior cerebral arteries is normal and symmetric. No aneurysms are seen. Dural sinuses demonstrate normal postcontrast enhancement. CSF spaces: Ventricles are normal in size and shape. Basal cisterns are patent. No extra-axial flu id collections. Brain: No midline shift. No intracranial bleeds or masses. Yoder-white matter interface appears int act. Skull and face: Calvarium and facial bones appear intact, without suspicious lesions. Sinuses: Visualized sinuses and mastoids are clear. IMPRESSION: 1. No acute intracranial disease process. 2. No large vessel occlusion, vascular dissection or aneurysm. 3. 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 4. No hemodynamically significant stenosis involving the intracranial internal carotid arteries or th e left vertebral artery. Reviewed by: Ana Ghosh MD, PhD on 11/20/2020 1:44 PM PDT Approved by: Ana Ghosh MD, PhD on 11/20/2020 1:44 PM PDT Station ID: [id number]
--- NOTE | 2020-11-20 13:52 | CT Report ---
PROCEDURE: ANGIO NECK W INDICATIONS: L sided facial droop, L neck pain CONTRAST: IV CONTRAST: Optiray 320 ml: 80 PO CONTRAST: *NO PO CONTRAST TECHNIQUE: After the administration of intravenous contrast, 1.5 mm axial sections acquired from the aortic arch to the [place] of [place]. Coronal 3-D maximum intensity projection (MIP) and/or volume rendering ref ormats were then performed. For radiation dose reduction, the following was used: automated exposur e control, adjustment of mA and/or kV according to patient size. COMPARISON: None. FINDINGS: Image quality: Excellent. Carotid system: The great vessels demonstrate a conventional anatomy as they arise from the aortic a rch. The origins of the common carotid arteries appear patent. The common carotid arteries demonstr ate normal calibers and courses. Atherosclerotic calcifications noted in the origins of the internal carotid arteries bilaterally which causes less than 50% stenosis of the vessels. Posterior circulation: The origins of the vertebral arteries are secured by artifact related to cont rast reflux into adjacent veins, but appear grossly patent. Patient is left vertebral artery dominant . The more superior portions of the vertebral arteries demonstrate normal course and caliber. They j oin to form a normal appearing basilar artery. Soft tissues: Visualized neck soft tissues demonstrate no suspicious abnormalities. The thyroid is normal in size and there are no incidental findings. Bones: No suspicious bony lesions. Spine degenerative disc disease and facet arthropathy are noted. Neurostimulator leads noted in the posterior aspect of the spinal canal. Visualized cervical spine a ppears normally aligned. IMPRESSION: 1. Less than 50% stenosis of the origins of the internal carotid arteries. 2. Vertebral arteries are fully patent where well visualized. Origins of the vertebral arteries parti ally obscured by artifact related to contrast reflux into adjacent veins, but origins of the vessels appear grossly patent. The estimate of stenosis included in the report of the imaging study was calculated using the NASCET method Reviewed by: Ana Ghosh MD, PhD on 11/20/2020 1:50 PM PDT Approved by: Ana Ghosh MD, PhD on 11/20/2020 1:50 PM PDT Station ID: [id number]
[2020-11-20 15:17] VITALS: BP 149/50
== END 2020-11-20 15:22 | disposition home or self-care (01) ==
LOC: ED 11:16
DX: R27.0 Ataxia, unspecified (principal); R47.81 Slurred speech; Z86.73 Personal history of transient ischemic attack (TIA), and cerebral infarction without residual deficits; I65.01 Occlusion and stenosis of right vertebral artery; I10 Essential (primary) hypertension; B02.29 Other postherpetic nervous system involvement; Z96.82 Presence of neurostimulator; Z79.82 Long term (current) use of aspirin
CPT/HCPCS: 36415; 70496; 70498; 71045; 80053; 83690; 84484; 85025; 93005; 99284; Q9967

== ENCOUNTER 2020-12-09 08:05 | Outpatient (CLI) | payer BC ==
[2020-12-09 08:40] LABS: CALCIUM 9.5 mg/dL (8.5-10.3); CREATININE 1.6 mg/dL (0.6-1.2); POTASSIUM 4.3 mmol/L (3.5-5.0)
[2020-12-09 09:16] LABS: ESTIMATED AVERAGE GLUCOSE 128 mg/dL (70-100); HEMOGLOBIN A1c% 6.1 % (4.27-6.07)
== END 2020-12-09 08:06 | disposition home or self-care (01) ==
LOC: LAB 08:05
PROVIDERS: ATTEND Physician Assistant Medical
DX: E29.1 Testicular hypofunction (principal)
CPT/HCPCS: 36415; 80048; 83036; 84403

== ENCOUNTER 2020-12-13 13:04 | Day surgery (SDC) | payer BC ==
[2020-12-13] MEDS ORDERED: LACTATED RINGERS 1,000 ML IV ONE ×2 (13:13→17:11)
[2020-12-13] MEDS ORDERED: fentaNYL 250 MCG/5 ML VIAL ONE (16:20)
[2020-12-13] MEDS ORDERED: MIDAZOLAM 2 MG/2 ML VIAL ONE ×2 (16:20→16:23)
[2020-12-13 17:16] VITALS: BP 124/86
== END 2020-12-13 13:05 | disposition home or self-care (01) ==
LOC: SDS 13:04
PROVIDERS: ATTEND Surgery
PROC: 0DBL8ZZ Excision of Transverse Colon, Via Natural or Artificial Opening Endoscopic (ICD-10-PCS; principal; 2020-12-13 14:30)
DX: Z12.11 Encounter for screening for malignant neoplasm of colon (principal); D12.3 Benign neoplasm of transverse colon; K57.30 Diverticulosis of large intestine without perforation or abscess without bleeding; K63.89 Other specified diseases of intestine; K21.9 Gastro-esophageal reflux disease without esophagitis; Z80.0 Family history of malignant neoplasm of digestive organs; E78.5 Hyperlipidemia, unspecified; I12.9 Hypertensive chronic kidney disease with stage 1 through stage 4 chronic kidney disease, or unspecified chronic kidney disease; E11.22 Type 2 diabetes mellitus with diabetic chronic kidney disease; N18.9 Chronic kidney disease, unspecified; G47.30 Sleep apnea, unspecified; H91.90 Unspecified hearing loss, unspecified ear; Z79.82 Long term (current) use of aspirin; Z87.891 Personal history of nicotine dependence; Z86.73 Personal history of transient ischemic attack (TIA), and cerebral infarction without residual deficits
CPT/HCPCS: 45380; J3010; J7120

== ENCOUNTER 2021-05-07 11:17 | Outpatient (CLI) | payer BC ==
[2021-05-07 18:27] LABS: BASOPHILS % (AUTO) 0.7 %; EOSINOPHILS # (AUTO) 0.2 10^3/uL (0.0-0.7); EOSINOPHILS % (AUTO) 4.9 %; HCT - HEMATOCRIT 44.7 % (42.0-52.0); HGB - HEMOGLOBIN 14.3 g/dL (14.0-18.0); LYMPHOCYTES % (AUTO) 23.6 %; MEAN CORPUSCULAR HEMOGLOBIN 31.2 pg (27.0-31.0); MEAN CORPUSCULAR VOLUME 97.6 fL (80.0-94.0); MEAN PLATELET VOLUME 9.7 fL (7.4-11.4); MONOCYTES # (AUTO) 0.7 10^3/uL (0.0-1.0); NEUTROPHILS # (AUTO) 2.1 10^3/uL (1.5-6.6); NEUTROPHILS % (AUTO) 52.6 %; PLT - PLATELET COUNT 260 10^3/uL (130-450); RED BLOOD COUNT 4.58 10^6/uL (4.70-6.10); RED CELL DISTRIBUTION WIDTH 12.8 % (12.0-15.0); WHITE BLOOD COUNT 4.1 x10^3/uL (4.8-10.8)
[2021-05-07 18:51] LABS: ALBUMIN 4.4 g/dL (3.2-5.5); ALBUMIN/GLOBULIN RATIO 1.2 (1.0-2.2); ALKALINE PHOSPHATASE 81 IU/L (42-121); ALT ALANINE AMINOTRANSFERASE 32 IU/L (10-60); AST ASPARTATE AMINOTRANSFERASE 29 IU/L (10-42); BILIRUBIN,TOTAL 0.7 mg/dL (0.2-1.0); BUN - BLOOD UREA NITROGEN 34 mg/dL (6-20); CALCIUM 9.6 mg/dL (8.5-10.3); CARBON DIOXIDE - CO2 30 mmol/L (21-32); CHLORIDE 95 mmol/L (101-111); CHOL/HDL RATIO 6.8 (<5.0); CHOLESTEROL 237 mg/dL; CREATININE 1.5 mg/dL (0.6-1.2); GFR - MDRD 46 (>89); GLUCOSE 118 mg/dL (70-100); HDL CHOLESTEROL 35 mg/dL; SODIUM 137 mmol/L (135-145); TRIGLYCERIDES 447 mg/dL
[2021-05-07 19:03] LABS: THYROID STIMULATING HORMONE 0.99 uIU/mL (0.34-5.60)
[2021-05-07 19:24] LABS: LDL CHOLESTEROL,DIRECT 106 mg/dL
[2021-05-07 21:05] LABS: ESTIMATED AVERAGE GLUCOSE 137 mg/dL (70-100); HEMOGLOBIN A1c% 6.4 % (4.27-6.07)
== END 2021-05-07 23:59 | disposition home or self-care (01) ==
LOC: LAB.WCP 11:17
PROVIDERS: ATTEND Internal Medicine Cardiovascular Disease
DX: I25.119 Atherosclerotic heart disease of native coronary artery with unspecified angina pectoris (principal); I10 Essential (primary) hypertension; E78.5 Hyperlipidemia, unspecified; Z13.29 Encounter for screening for other suspected endocrine disorder; Z13.1 Encounter for screening for diabetes mellitus
CPT/HCPCS: 36415; 80053; 80061; 83036; 83721; 84443; 85025

== ENCOUNTER 2021-06-05 10:39 | Outpatient (CLI) | payer BC ==
[2021-06-05 18:37] LABS: ALBUMIN 4.2 g/dL (3.2-5.5); ALBUMIN/GLOBULIN RATIO 1.3 (1.0-2.2); ALKALINE PHOSPHATASE 76 IU/L (42-121); ALT ALANINE AMINOTRANSFERASE 35 IU/L (10-60); AST ASPARTATE AMINOTRANSFERASE 29 IU/L (10-42); BILIRUBIN,TOTAL 0.6 mg/dL (0.2-1.0); BUN - BLOOD UREA NITROGEN 26 mg/dL (6-20); CALCIUM 9.4 mg/dL (8.5-10.3); CARBON DIOXIDE - CO2 28 mmol/L (21-32); CHLORIDE 98 mmol/L (101-111); CHOL/HDL RATIO 5.4 (<5.0); CHOLESTEROL 214 mg/dL; CREATININE 1.3 mg/dL (0.6-1.2); GFR - MDRD 54 (>89); GLUCOSE 108 mg/dL (70-100); HDL CHOLESTEROL 40 mg/dL; LDL CHOLESTEROL,CALCULATED 123 mg/dL; LDL/HDL RATIO 3.1 (<3.6); POTASSIUM 4.1 mmol/L (3.5-5.0); SODIUM 136 mmol/L (135-145); TOTAL PROTEIN 7.5 g/dL (6.7-8.2); TRIGLYCERIDES 257 mg/dL; VLDL CHOLESTEROL 51 mg/dL
[2021-06-05 18:40] LABS: CREATININE,URINE 102.4 mg/dL; MICROALBUM/CREATININE RATIO,UR 4.9 ug/mg (<30.0); MICROALBUMIN,URINE 0.5 mg/dL (0-300.0)
[2021-06-05 21:11] LABS: ESTIMATED AVERAGE GLUCOSE 140 mg/dL (70-100); HEMOGLOBIN A1c% 6.5 % (4.27-6.07)
== END 2021-06-05 23:59 | disposition home or self-care (01) ==
LOC: LAB.WCP 10:39
PROVIDERS: ATTEND Physician Assistant Medical
DX: E11.9 Type 2 diabetes mellitus without complications (principal); E29.1 Testicular hypofunction
CPT/HCPCS: 36415; 80053; 80061; 82043; 82570; 83036; 83721; 84403

== ENCOUNTER 2021-07-30 10:17 | Outpatient (CLI) | payer BC | END 2021-07-30 10:18 | disposition home or self-care (01) | LOC: LAB.N 10:17 | PROVIDERS: ATTEND Physician Assistant Medical | DX: E29.1 Testicular hypofunction (principal) | CPT/HCPCS: 36415; 82040; 84270; 84403 ==

== ENCOUNTER 2022-04-23 09:58 | Outpatient (CLI) | payer OTHER ==
[2022-04-23 12:41] LABS: BASOPHILS % (AUTO) 0.5 %; EOSINOPHILS # (AUTO) 0.1 10^3/uL (0.0-0.7); EOSINOPHILS % (AUTO) 1.7 %; HCT - HEMATOCRIT 39.9 % (42.0-52.0); HGB - HEMOGLOBIN 12.8 g/dL (14.0-18.0); LYMPHOCYTES # (AUTO) 1.1 10^3/uL (1.5-3.5); MEAN CORPUSCULAR HEMOGLOBIN 31.9 pg (27.0-31.0); MEAN CORPUSCULAR HGB CONC 32.1 g/dL (32.0-36.0); MEAN CORPUSCULAR VOLUME 99.5 fL (80.0-94.0); MEAN PLATELET VOLUME 9.5 fL (7.4-11.4); MONOCYTES # (AUTO) 0.8 10^3/uL (0.0-1.0); NEUTROPHILS # (AUTO) 3.9 10^3/uL (1.5-6.6); NEUTROPHILS % (AUTO) 66.6 %; PLT - PLATELET COUNT 214 10^3/uL (130-450); RED BLOOD COUNT 4.01 10^6/uL (4.70-6.10); RED CELL DISTRIBUTION WIDTH 13.2 % (12.0-15.0); WHITE BLOOD COUNT 5.8 x10^3/uL (4.8-10.8)
[2022-04-23 13:02] LABS: ALBUMIN 4.8 g/dL (3.2-5.5); ALBUMIN/GLOBULIN RATIO 1.5 (1.0-2.2); BILIRUBIN,TOTAL 0.4 mg/dL (0.2-1.0); CALCIUM 9.9 mg/dL (8.5-10.3); CREATININE 1.7 mg/dL (0.6-1.2); TOTAL PROTEIN 7.9 g/dL (6.7-8.2)
== END 2022-04-23 09:59 | disposition home or self-care (01) ==
LOC: LAB.N 09:58
PROVIDERS: ATTEND Physician Assistant Medical
DX: E11.9 Type 2 diabetes mellitus without complications (principal); D64.9 Anemia, unspecified
CPT/HCPCS: 36415; 80053; 85025

== ENCOUNTER 2022-04-23 13:19 | Outpatient (CLI) | payer OTHER ==
--- NOTE | 2022-04-23 15:07 | XRAY Report ---
PROCEDURE: Chest 2 View X-Ray INDICATIONS: PULMONARY FIBROSIS,INTERSTITIAL TECHNIQUE: 2 views of the chest were acquired COMPARISON: 12-09 FINDINGS: Spinal nerve stimulator leads project over the midline. Mild right hemidiaphragm elevation. Mild coarsening of the perihilar interstitial markings bilaterall y. No dense consolidations or pleural effusions. Heart size at the upper limits of normal. Normal lisa tral vasculature. Osseous structures demonstrate chronic appearing compression fractures in the mid and lower thoracic spine. IMPRESSION: 1. Chronic coarsening of the interstitial markings compatible with chronic lung disease. 2. Asymmetric right hemidiaphragm elevation. 3. No acute consolidations or effusions. Reviewed by: Marii Wallace MD on 04/23/2022 3:06 PM PDT Approved by: Marii Wallace MD on 04/23/2022 3:06 PM PDT Station ID: [id number]
== END 2022-04-23 13:20 | disposition home or self-care (01) ==
LOC: DI 13:19
PROVIDERS: ATTEND Physician Assistant Medical
DX: J84.10 Pulmonary fibrosis, unspecified (principal); E11.9 Type 2 diabetes mellitus without complications; D64.9 Anemia, unspecified
CPT/HCPCS: 36415; 80053; 85025

== ENCOUNTER 2022-10-02 11:07 | Outpatient (CLI) | payer OTHER ==
[2022-10-02 17:57] LABS: ALBUMIN 4.4 g/dL (3.2-5.5); ALBUMIN/GLOBULIN RATIO 1.4 (1.0-2.2); ALKALINE PHOSPHATASE 54 IU/L (42-121); ALT ALANINE AMINOTRANSFERASE 32 IU/L (10-60); AST ASPARTATE AMINOTRANSFERASE 27 IU/L (10-42); BILIRUBIN,TOTAL 0.8 mg/dL (0.2-1.0); BUN - BLOOD UREA NITROGEN 35 mg/dL (6-20); CALCIUM 9.7 mg/dL (8.5-10.3); CARBON DIOXIDE - CO2 28 mmol/L (21-32); CHLORIDE 102 mmol/L (101-111); CHOL/HDL RATIO 6.3 (<5.0); CHOLESTEROL 244 mg/dL; CREATININE 1.5 mg/dL (0.6-1.2); GFR - MDRD 46 (>89); GLUCOSE 127 mg/dL (70-100); HDL CHOLESTEROL 39 mg/dL; LDL CHOLESTEROL,CALCULATED 131 mg/dL; LDL/HDL RATIO 3.4 (<3.6); POTASSIUM 3.7 mmol/L (3.5-5.0); SODIUM 138 mmol/L (135-145); TOTAL PROTEIN 7.6 g/dL (6.7-8.2); TRIGLYCERIDES 368 mg/dL; VLDL CHOLESTEROL 74 mg/dL
[2022-10-02 21:23] LABS: ESTIMATED AVERAGE GLUCOSE 137 mg/dL (70-100); HEMOGLOBIN A1c% 6.4 % (4.27-6.07)
== END 2022-10-02 11:08 | disposition home or self-care (01) ==
LOC: LAB.N 11:07
PROVIDERS: ATTEND Physician Assistant Medical
DX: E78.5 Hyperlipidemia, unspecified (principal); E11.9 Type 2 diabetes mellitus without complications
CPT/HCPCS: 36415; 80053; 80061; 83036; 83721; 84403

== ENCOUNTER 2022-10-07 07:43 | Outpatient (CLI) | payer OTHER ==
[2022-10-07 12:23] LABS: THYROID STIMULATING HORMONE 0.98 uIU/mL (0.34-5.60)
[2022-10-07 12:27] LABS: FREE T4 (FREE THYROXINE) 0.7 ng/dL (0.58-1.64)
[2022-10-07 12:40] LABS: ALBUMIN 4.3 g/dL (3.2-5.5); ALKALINE PHOSPHATASE 52 IU/L (42-121); ALT ALANINE AMINOTRANSFERASE 33 IU/L (10-60); AST ASPARTATE AMINOTRANSFERASE 31 IU/L (10-42); BILIRUBIN,TOTAL 0.6 mg/dL (0.2-1.0); CHOL/HDL RATIO 6.4 (<5.0); CHOLESTEROL 236 mg/dL; HDL CHOLESTEROL 37 mg/dL; LDL CHOLESTEROL,CALCULATED 122 mg/dL; LDL/HDL RATIO 3.3 (<3.6); TOTAL PROTEIN 7.5 g/dL (6.7-8.2); TRIGLYCERIDES 383 mg/dL; VLDL CHOLESTEROL 77 mg/dL
[2022-10-07 12:41] LABS: BILIRUBIN,DIRECT < 0.1 mg/dL (0.1-0.5)
== END 2022-10-07 07:44 | disposition home or self-care (01) ==
LOC: LAB.N 07:43
PROVIDERS: ATTEND Physician Assistant Medical
DX: E78.5 Hyperlipidemia, unspecified (principal); Z13.29 Encounter for screening for other suspected endocrine disorder
CPT/HCPCS: 36415; 80061; 80076; 83721; 84439; 84443

== ENCOUNTER 2023-03-02 08:10 | Outpatient (CLI) | payer OTHER ==
[2023-03-02 12:11] LABS: ALBUMIN 4.5 g/dL (3.2-5.5); ALKALINE PHOSPHATASE 45 IU/L (42-121); ALT ALANINE AMINOTRANSFERASE 22 IU/L (10-60); AST ASPARTATE AMINOTRANSFERASE 23 IU/L (10-42); BILIRUBIN,DIRECT < 0.10 mg/dL (0.03-0.18); BILIRUBIN,TOTAL 0.4 mg/dL (0.2-1.0); CHOL/HDL RATIO 5.1 (<5.0); CHOLESTEROL 168 mg/dL; HDL CHOLESTEROL 33 mg/dL; LDL CHOLESTEROL,CALCULATED 97 mg/dL; LDL/HDL RATIO 2.9 (<3.6); TOTAL PROTEIN 7.3 g/dL (6.4-8.9); TRIGLYCERIDES 191 mg/dL (48-352); VLDL CHOLESTEROL 38 mg/dL
== END 2023-03-02 08:11 | disposition home or self-care (01) ==
LOC: LAB.N 08:10
PROVIDERS: ATTEND Internal Medicine Cardiovascular Disease
DX: E78.5 Hyperlipidemia, unspecified (principal)
CPT/HCPCS: 36415; 80061; 80076; 83721

== ENCOUNTER 2023-03-26 08:23 | Outpatient (CLI) | payer OTHER ==
[2023-03-26 12:22] LABS: ESTIMATED AVERAGE GLUCOSE 131 mg/dL (70-100); HEMOGLOBIN A1c% 6.2 % (4.27-6.07)
[2023-03-26 12:31] LABS: CALCIUM 9.9 mg/dL (8.5-10.3); CREATININE 2.1 mg/dL (0.6-1.3); POTASSIUM 4.3 mmol/L (3.5-4.5)
== END 2023-03-26 08:24 | disposition home or self-care (01) ==
LOC: LAB.N 08:23
PROVIDERS: ATTEND Physician Assistant Medical
DX: E11.9 Type 2 diabetes mellitus without complications (principal)
CPT/HCPCS: 36415; 80048; 83036

== ENCOUNTER 2023-04-20 17:48 | Outpatient (CLI) | payer OTHER | END 2023-04-20 17:49 | disposition critical access hospital (66) | LOC: EMS 17:48 | DX: R53.83 Other fatigue (principal); R46.4 Slowness and poor responsiveness; R41.0 Disorientation, unspecified; I95.9 Hypotension, unspecified | CPT/HCPCS: A0425; A0427 ==

== ENCOUNTER 2023-06-26 09:30 | Outpatient (CLI) | payer OTHER ==
[2023-06-26 19:30] LABS: CALCIUM 9.3 mg/dL (8.5-10.3); CREATININE 1.8 mg/dL (0.6-1.3); POTASSIUM 4.2 mmol/L (3.5-4.5)
[2023-06-26 21:52] LABS: ESTIMATED AVERAGE GLUCOSE 140 mg/dL (70-100); HEMOGLOBIN A1c% 6.5 % (4.27-6.07)
== END 2023-06-26 09:31 | disposition home or self-care (01) ==
LOC: LAB.N 09:30
PROVIDERS: ATTEND Physician Assistant Medical
DX: E11.9 Type 2 diabetes mellitus without complications (principal)
CPT/HCPCS: 36415; 80048; 83036

== ENCOUNTER 2023-10-02 09:10 | Outpatient (CLI) | payer OTHER ==
[2023-10-02 19:03] LABS: BILIRUBIN,URINE NEGATIVE (NEGATIVE); GLUCOSE, URINE (UA) NEGATIVE (NEGATIVE); KETONES,URINE (UA) NEGATIVE (NEGATIVE); LEUKOCYTE ESTERASE, URINE NEGATIVE (NEGATIVE); NITRITE,URINE NEGATIVE (NEGATIVE); OCCULT BLOOD,URINE NEGATIVE (NEGATIVE); PROTEIN,URINE NEGATIVE (NEGATIVE); UROBILINOGEN,URINE 0.2 (NORMAL) E.U./dL (NORMAL)
[2023-10-02 19:05] LABS: ESTIMATED AVERAGE GLUCOSE 126 mg/dL (70-100)
[2023-10-02 19:13] LABS: ALBUMIN 4.1 g/dL (3.2-5.5); ALBUMIN/GLOBULIN RATIO 1.4 (1.0-2.2); BILIRUBIN,TOTAL 0.5 mg/dL (0.2-1.0); CALCIUM 9.8 mg/dL (8.5-10.3); CREATININE 1.4 mg/dL (0.6-1.3); POTASSIUM 3.9 mmol/L (3.5-4.5); TOTAL PROTEIN 7.1 g/dL (6.4-8.9)
[2023-10-02 19:54] LABS: CLARITY,URINE CLEAR (CLEAR)
== END 2023-10-02 09:11 | disposition home or self-care (01) ==
LOC: LAB.N 09:10
PROVIDERS: ATTEND Physician Assistant Medical
DX: E11.9 Type 2 diabetes mellitus without complications (principal); Z12.5 Encounter for screening for malignant neoplasm of prostate; R35.0 Frequency of micturition
CPT/HCPCS: 36415; 80053; 81001; 81003; 83036; 84153; 87086

== ENCOUNTER 2023-11-26 09:59 | Outpatient (CLI) | payer OTHER ==
[2023-11-26 12:28] LABS: BASOPHILS % (AUTO) 0.7 %; EOSINOPHILS # (AUTO) 0.2 10^3/uL (0.0-0.7); EOSINOPHILS % (AUTO) 4.1 %; HCT - HEMATOCRIT 41.9 % (42.0-52.0); HGB - HEMOGLOBIN 13.2 g/dL (14.0-18.0); LYMPHOCYTES # (AUTO) 0.8 10^3/uL (1.5-3.5); LYMPHOCYTES % (AUTO) 19.2 %; MEAN CORPUSCULAR HEMOGLOBIN 29.7 pg (27.0-31.0); MEAN CORPUSCULAR HGB CONC 31.5 g/dL (32.0-36.0); MEAN CORPUSCULAR VOLUME 94.2 fL (80.0-94.0); MEAN PLATELET VOLUME 9.7 fL (7.4-11.4); MONOCYTES # (AUTO) 0.6 10^3/uL (0.0-1.0); MONOCYTES % (AUTO) 13.6 %; NEUTROPHILS # (AUTO) 2.6 10^3/uL (1.5-6.6); NEUTROPHILS % (AUTO) 62.2 %; PLT - PLATELET COUNT 180 10^3/uL (130-450); RED BLOOD COUNT 4.45 10^6/uL (4.70-6.10); RED CELL DISTRIBUTION WIDTH 13.1 % (12.0-15.0); WHITE BLOOD COUNT 4.1 x10^3/uL (4.8-10.8)
[2023-11-26 13:02] LABS: PROLACTIN 18.68 ng/mL
== END 2023-11-26 10:00 | disposition home or self-care (01) ==
LOC: LAB.N 09:59
PROVIDERS: ATTEND Urology
DX: E29.1 Testicular hypofunction (principal)
CPT/HCPCS: 36415; 82670; 83002; 84146; 84403; 85025

== ENCOUNTER 2024-01-03 10:11 | Outpatient (CLI) | payer OTHER ==
[2024-01-03 12:21] LABS: ALBUMIN 4.2 g/dL (3.2-5.5); ALBUMIN/GLOBULIN RATIO 1.5 (1.0-2.2); ALKALINE PHOSPHATASE 71 IU/L (42-121); ALT ALANINE AMINOTRANSFERASE 26 IU/L (10-60); AST ASPARTATE AMINOTRANSFERASE 25 IU/L (10-42); BILIRUBIN,TOTAL 0.4 mg/dL (0.2-1.0); BUN - BLOOD UREA NITROGEN 27 mg/dL (6-20); CALCIUM 9.4 mg/dL (8.5-10.3); CARBON DIOXIDE - CO2 25 mmol/L (21-32); CHLORIDE 103 mmol/L (101-111); CHOL/HDL RATIO 4.4 (<5.0); CHOLESTEROL 120 mg/dL; CREATININE 1.5 mg/dL (0.6-1.3); ESTIMATED AVERAGE GLUCOSE 120 mg/dL (70-100); GFR - MDRD 45 (>89); GLUCOSE 109 mg/dL (74-104); HDL CHOLESTEROL 27 mg/dL; HEMOGLOBIN A1c% 5.8 % (4.27-6.07); LDL CHOLESTEROL,CALCULATED 70 mg/dL; LDL/HDL RATIO 2.6 (<3.6); POTASSIUM 3.6 mmol/L (3.5-4.5); SODIUM 133 mmol/L (135-145); TRIGLYCERIDES 114 mg/dL; VLDL CHOLESTEROL 23 mg/dL
== END 2024-01-03 10:12 | disposition home or self-care (01) ==
LOC: LAB.N 10:11
PROVIDERS: ATTEND Physician Assistant Medical
DX: E11.9 Type 2 diabetes mellitus without complications (principal)
CPT/HCPCS: 36415; 80053; 80061; 83036; 83721

== ENCOUNTER 2024-01-10 08:57 | Outpatient (CLI) | payer OTHER | END 2024-01-10 08:58 | disposition home or self-care (01) | LOC: LAB.N 08:57 | PROVIDERS: ATTEND Urology | DX: E23.0 Hypopituitarism (principal) | CPT/HCPCS: 36415; 84403 ==

== ENCOUNTER 2024-01-20 10:15 | Outpatient (CLI) | payer OTHER | END 2024-01-20 10:16 | disposition home or self-care (01) | LOC: LAB.N 10:15 | PROVIDERS: ATTEND Urology | DX: E23.0 Hypopituitarism (principal) | CPT/HCPCS: 36415; 84403 ==

== ENCOUNTER 2024-03-06 11:36 | Outpatient (CLI) | payer OTHER ==
[2024-03-06 17:36] LABS: BASOPHILS % (AUTO) 0.7 %; EOSINOPHILS # (AUTO) 0.1 10^3/uL (0.0-0.7); EOSINOPHILS % (AUTO) 2.4 %; HGB - HEMOGLOBIN 13.8 g/dL (14.0-18.0); LYMPHOCYTES % (AUTO) 18.2 %; MEAN CORPUSCULAR HEMOGLOBIN 29.1 pg (27.0-31.0); MEAN CORPUSCULAR HGB CONC 30.7 g/dL (32.0-36.0); MEAN CORPUSCULAR VOLUME 94.7 fL (80.0-94.0); MEAN PLATELET VOLUME 10.4 fL (7.4-11.4); MONOCYTES # (AUTO) 0.9 10^3/uL (0.0-1.0); NEUTROPHILS # (AUTO) 3.4 10^3/uL (1.5-6.6); NEUTROPHILS % (AUTO) 62.5 %; PLT - PLATELET COUNT 248 10^3/uL (130-450); RED BLOOD COUNT 4.75 10^6/uL (4.70-6.10); RED CELL DISTRIBUTION WIDTH 14.2 % (12.0-15.0); WHITE BLOOD COUNT 5.5 x10^3/uL (4.8-10.8)
== END 2024-03-06 11:37 | disposition home or self-care (01) ==
LOC: LAB.N 11:36
PROVIDERS: ATTEND Urology
DX: E23.0 Hypopituitarism (principal)
CPT/HCPCS: 36415; 84403; 85025